=== PATIENT | female | born 1975 | race African-American/Black ===

== ENCOUNTER 2019-05-19 23:51 | Emergency (ER) | payer SELFPAY ==
[2019-05-20] MEDS ORDERED: ASPIRIN 325 MG TAB ONE ×2 (00:21→00:26)
[2019-05-20 01:59] LABS: Protime INR 1.07
[2019-05-20 02:00] LABS: Absolute Lymphocytes (CBC) 1.9 K/uL (0.7-4.9); Basophils % 1.4 % (0-1.3); Hematocrit 35.9 % (36.0-45.0); Lymphocytes % 23.2 % (15.3-44.8); MPV 10.9 fL (7.6-11.3); RBC Red Blood Cell Count 4.65 M/uL (3.86-4.86)
[2019-05-20 02:12] LABS: ALT/SGPT 21 U/L (12-78); AST/SGOT 13 U/L (15-37); Albumin 3.5 g/dL (3.4-5.0); Alkaline Phosphatase 108 U/L (45-117); BUN Blood Urea Nitrogen 15 mg/dL (7-18); Bicarbonate 28 mmol/L (21-32); Bilirubin Direct 0.1 mg/dL (0-0.2); Bilirubin Total 0.6 mg/dL (0.2-1.0); Glucose Level 165 mg/dL (74-106); Magnesium 2.2 mg/dL (1.8-2.4); NT PRO-BNP 128 pg/mL (<125); Potassium 4.2 mmol/L (3.5-5.1); Protein, Total 8.1 g/dL (6.4-8.2); Sodium Level 140 mmol/L (136-145); Troponin (Emerg Dept Use Only) < 0.02 ng/mL (0.0-0.045)
--- NOTE | 2019-05-20 03:03 | ER ---
Nurse's Notes [facility] Name: Alisa Landry Age: 43 yrs Sex: Female : 1975 Arrival Date: 05/19/2019 Time: 23:53 Bed 18 Private MD: Diagnosis: Essential (primary) hypertension Presentation: 05/20 00:10 Presenting complaint: Patient states: "I recently went to my doctor and he adjusted my jd3 blood pressure mediation. today my home monitor won't read my blood pressure and just says error. I also started to have intermittent burning in my chest, neck and arm and is the reason I decided to come to the ER.". Transition of care: patient was not received from another setting of care. Onset of symptoms was May 20, 2019. Risk Assessment: Do you want to hurt yourself or someone else? Patient reports no desire to harm self or others. Initial Sepsis Screen: Does the patient meet any 2 criteria? No. Patient's initial sepsis screen is negative. Does the patient have a suspected source of infection? No. Patient's initial sepsis screen is negative. Care prior to arrival: None. 00:10 Method Of Arrival: Ambulatory jd3 00:10 Acuity: ZEYAD 2 jd3 Triage Assessment: 00:18 Respiratory: Reports shortness of breath prior to arrival. Onset: The symptoms/episode jd3 began/occurred just prior to arrival, the patient reports symptoms have resolved. 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 - Social history:: Smoking status: Patient/guardian denies using tobacco. - Ebola Screening: : Patient negative for fever greater than or equal to 101.5 degrees Fahrenheit, and additional compatible Ebola Virus Disease symptoms. Screenin:18 Abuse screen: Denies threats or abuse. Nutritional screening: No deficits noted. jd3 Tuberculosis screening: No symptoms or risk factors identified. Fall Risk Ambulatory Aid- None/Bed Rest/Nurse Assist (0 pts). Gait- Normal/Bed Rest/Wheelchair (0 pts) Mental Status- Oriented to own ability (0 pts). Total Jackson Fall Scale indicates No Risk (0-24 pts). Assessment: 00:30 General: Appears uncomfortable, obese, Behavior is calm, cooperative. Pain: Complains tr5 of pain in xyphoid area and mid-sternal area Pain radiates to anterior aspect of left upper chest and left breast Quality of pain is described as burning, Pain began gradually. Neuro: Level of Consciousness is awake, alert, Oriented to person, place, time, situation, Solid State Tester are equal bilaterally Moves all extremities. Cardiovascular: Heart tones present Capillary refill < 3 seconds Pulses are all present. Edema is 3+ to left ankle, left foot, right ankle and right foot Rhythm is sinus rhythm Chest pain. Respiratory: Airway is patent Respiratory effort is even, unlabored. Respiratory: Breath sounds are clear bilaterally. GI: Reports gaseousness. : No signs and/or symptoms were reported regarding the genitourinary system. EENT: No signs and/or symptoms were reported regarding the EENT system. Derm: No signs and/or symptoms reported regarding the dermatologic system. Musculoskeletal: Capillary refill < 3 seconds, Range of motion: intact in all extremities. 01:30 Reassessment: Patient appears in no apparent distress at this time. Patient and/or tr5 family updated on plan of care and expected duration. Pain level reassessed. Patient is alert, oriented x 3, equal unlabored respirations, skin warm/dry/pink. 02:30 Reassessment: Patient and/or family updated on plan of care and expected duration. Pain tr5 level reassessed. Patient is alert, oriented x 3, equal unlabored respirations, skin warm/dry/pink. Patient denies pain at this time. 03:35 Reassessment: Patient appears in no apparent distress at this time. Patient and/or tr5 family updated on plan of care and expected duration. Pain level reassessed. Patient is alert, oriented x 3, equal unlabored respirations, skin warm/dry/pink. Vital Signs: 00:12 BP 189 / 85; Pulse 68; Resp 18 S; Temp 98.1(O); Pulse Ox 100% on R/A; Weight 176.9 kg jd3 (R); Height 4 ft. 11 in. (149.86 cm) (R); Pain 0/10; 01:30 BP 195 / 85; Pulse 70; Resp 16; Pulse Ox 100% ; tr5 03:03 BP 165 / 65; Pulse 62; Resp 16; Pulse Ox 100% on R/A; tr5 00:12 Body Mass Index 78.77 (176.90 kg, 149.86 cm) jd3 ED Course: 05/19 23:53 Patient arrived in ED. ds1 05/20 00:05 [facility] snw 00:05 Ramsey Horan MD is Attending Physician. snw 00:12 Triage completed. jd3 00:14 Arm band placed on Patient placed in an exam room. EKG completed in triage. Results jd3 shown to MD. 00:19 Patient has correct armband on for positive identification. Bed in low position. Call jd3 light in reach. Side rails up X 1. Adult w/ patient. 00:20 air sampling and monitoring on. Pulse ox on. NIBP on. Door closed. Noise minimized. tr5 00:27 Gerry Blair, RN is Primary Nurse. tr5 00:45 Missed attempt(s): 20 gauge in right antecubital area. tr5 00:46 X-ray completed. Portable x-ray completed in exam room. Patient tolerated procedure kw well. 00:52 Missed attempt(s): 22 gauge in right antecubital area. Bleeding controlled, band aid jd3 applied, catheter tip intact. 00:54 Chest Single View XRAY In Process Unspecified. EDMS 01:11 Awaiting radiology results. tr5 01:11 Inserted saline lock: 20 gauge in left antecubital area, using aseptic technique. tr5 ,using aseptic technique. By ultrasound. 01:15 Initial lab(s) drawn, by me, sent to lab. bb 03:36 No provider procedures requiring assistance completed. IV discontinued. tr5 Administered Medications: 00:25 CANCELLED (other intervention used): Aspirin Chewable Tablet 324 mg PO once; 81 mg snw tablets x 4 00:45 Drug: Aspirin Chewable Tablet 243 mg Route: PO; tr5 01:16 Follow up: Response: No adverse reaction tr5 Outcome: 03:02 Discharge ordered by MD. amaya 03:36 Discharged to home ambulatory. tr5 03:36 Condition: stable 03:36 Discharge instructions given to patient, Instructed on discharge instructions, follow up and referral plans. Demonstrated understanding of instructions, follow-up care. 03:38 Patient left the ED. tr5 Signatures: Dispatcher [employer] EDNE Dena Paz, IJEOMAC FABRICATION SPECIALIST-Briseida Magana ds1 Klyeigh Jo RN RN bb Cinthia Price Jonathon, RN RN Gerry Hernandez RN RN tr5
--- NOTE | 2019-05-20 03:04 | EDPHYS ---
Physician Documentation [facility] Name: Alisa Landry Age: 43 yrs Sex: Female : 1975 Arrival Date: 05/19/2019 Time: 23:53 Bed 18 Private MD: ED Physician Ramsey Horan HPI: 05/20 00:37 This 43 yrs old Black Female presents to ER via Ambulatory with complaints of High snw Blood Pressure, Shortness Of Breath. 00:37 The patient has elevated blood pressure and discovered this at home, with a home snw device. Onset: The symptoms/episode began/occurred saw Dr. Wilson last week, pt was on Bystolic and last week they added Losartan. Yesterday Losartan dose was increased. Today pt had a brief episode of near syncope and the brief shortness of breath. Noted her BP was high all day and decided to come to ED. Severity of symptoms: At its worst the blood pressure was 100 mm Hg. The patient has experienced similar episodes in the past. as noted. 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 - Social history:: Smoking status: Patient/guardian denies using tobacco. - Ebola Screening: : Patient negative for fever greater than or equal to 101.5 degrees Fahrenheit, and additional compatible Ebola Virus Disease symptoms. ROS: 00:36 Constitutional: Negative for fever, chills, and weight loss, Eyes: Negative for injury, snw pain, redness, and discharge, ENT: Negative for injury, pain, and discharge, Neck: Negative for injury, pain, and swelling, Cardiovascular: Negative for chest pain, palpitations, and edema, burning in chest and back Abdomen/GI: Negative for abdominal pain, nausea, vomiting, diarrhea, and constipation, Back: Negative for injury and pain, : Negative for injury, bleeding, discharge, and swelling, MS/Extremity: Negative for injury and deformity, Skin: Negative for injury, rash, and discoloration, Neuro: Negative for headache, weakness, numbness, tingling, and seizure. 00:36 Respiratory: Positive for shortness of breath, at rest. briefly. Exam: 00:35 Constitutional: This is a well developed, well nourished patient who is awake, alert, snw and in no acute distress. Head/Face: Normocephalic, atraumatic. Eyes: Pupils equal round and reactive to light, extra-ocular motions intact. Lids and lashes normal. Conjunctiva and sclera are non-icteric and not injected. Cornea within normal limits. Periorbital areas with no swelling, redness, or edema. ENT: Nares patent. No nasal discharge, no septal abnormalities noted. Tympanic membranes are normal and external auditory canals are clear. Oropharynx with no redness, swelling, or masses, exudates, or evidence of obstruction, uvula midline. Mucous membranes moist. Neck: Trachea midline, no thyromegaly or masses palpated, and no cervical lymphadenopathy. Supple, full range of motion without nuchal rigidity, or vertebral point tenderness. No Meningismus. Chest/axilla: Normal chest wall appearance and motion. Nontender with no deformity. No lesions are appreciated. Cardiovascular: Regular rate and rhythm with a normal S1 and S2. No gallops, murmurs, or rubs. Normal PMI, no JVD. No pulse deficits. Respiratory: Lungs have equal breath sounds bilaterally, clear to auscultation and percussion. No rales, rhonchi or wheezes noted. No increased work of breathing, no retractions or nasal flaring. Abdomen/GI: Soft, non-tender, with normal bowel sounds. No distension or tympany. No guarding or rebound. No evidence of tenderness throughout. Back: No spinal tenderness. No costovertebral tenderness. Full range of motion. Skin: Warm, dry with normal turgor. Normal color with no rashes, no lesions, and no evidence of cellulitis. MS/ Extremity: Pulses equal, no cyanosis. Neurovascular intact. Full, normal range of motion. Neuro: Awake and alert, GCS 15, oriented to person, place, time, and situation. Cranial nerves II-XII grossly intact. Motor strength 5/5 in all extremities. Sensory grossly intact. Cerebellar exam normal. Normal gait. 00:35 ECG was reviewed by the Attending Physician. Vital Signs: 00:12 BP 189 / 85; Pulse 68; Resp 18 S; Temp 98.1(O); Pulse Ox 100% on R/A; Weight 176.9 kg jd3 (R); Height 4 ft. 11 in. (149.86 cm) (R); Pain 0/10; 01:30 BP 195 / 85; Pulse 70; Resp 16; Pulse Ox 100% ; tr5 03:03 BP 165 / 65; Pulse 62; Resp 16; Pulse Ox 100% on R/A; tr5 00:12 Body Mass Index 78.77 (176.90 kg, 149.86 cm) jd3 MDM: 00:09 Patient medically screened. snw 03:08 Data interpreted: Pulse oximetry: on room air is 100 %. Interpretation: normal. snw Counseling: I had a detailed discussion with the patient and/or guardian regarding: the historical points, exam findings, and any diagnostic results supporting the discharge/admit diagnosis, the presence of at least one elevated blood pressure reading (>120/80) during this emergency department visit, lab results, radiology results, the need for outpatient follow up, to return to the emergency department if symptoms worsen or persist or if there are any questions or concerns that arise at home. Special discussion: I have referred the patient to see his PCP for further evaluation of high blood pressure. Based on the history and exam findings, there is no indication for further emergent testing or inpatient evaluation. I discussed with the patient/guardian the need to see the primary care provider for further evaluation of the symptoms. 03:09 Data reviewed: vital signs, nurses notes, lab test result(s), EKG, radiologic studies. snw 05/20 00:18 Order name: Basic Metabolic Panel; Complete Time: 02:58 snw 05/20 00:18 Order name: CBC with Diff; Complete Time: 02:07 snw 05/20 00:18 Order name: LFT's; Complete Time: 02:58 snw 05/20 00:18 Order name: Magnesium; Complete Time: 02:58 snw 05/20 00:18 Order name: NT PRO-BNP; Complete Time: 02:58 snw 05/20 00:18 Order name: PT-INR; Complete Time: 02:07 w 05/20 00:17 Order name: Chest Single View XRAY 05/20 00:18 Order name: Troponin (emerg Dept Use Only); Complete Time: 02:58 snw 05/20 00:18 Order name: EKG; Complete Time: 00:21 w 05/20 00:18 Order name: Cardiac monitoring; Complete Time: 00:20 snw 05/20 00:18 Order name: EKG - Nurse/Tech; Complete Time: 00:20 snw 05/20 00:18 Order name: IV Saline Lock; Complete Time: :15 w 05/20 00:18 Order name: Labs collected and sent; Complete Time: 01:15 05/20 00:18 Order name: O2 Per Protocol; Complete Time: 00:20 w 05/20 00:18 Order name: O2 Sat Monitoring; Complete Time: 00:20 snw 05/20 02:59 Order name: Recheck B/P; Complete Time: 03:05 snw Administered Medications: 00:25 CANCELLED (other intervention used): Aspirin Chewable Tablet 324 mg PO once; 81 mg snw tablets x 4 00:45 Drug: Aspirin Chewable Tablet 243 mg Route: PO; tr5 01:16 Follow up: Response: No adverse reaction tr5 Disposition: 05/20/19 03:02 Discharged to Home. Impression: Essential (primary) hypertension. - Condition is Stable. - Discharge Instructions: Hypertension, How to Take Your Blood Pressure, [id number], DASH Eating Plan, Rehydration, Adult, Managing Your Hypertension, Form - Blood Pressure Record Sheet. - Work release form, Medication Reconciliation Form, Thank You Letter, Antibiotic Education, Prescription Opioid Use form. - Follow up: Private Physician; When: 1 - 2 days; Reason: Recheck today's complaints, Continuance of care, Re-evaluation by your physician. Follow up: Emergency Department; When: As needed; Reason: Worsening of condition. - Problem is an acute exacerbation. - Symptoms are unchanged. Signatures: Dispatcher [facility] EDDena Pu[facility], TESTING AND REGULATING TECHNICIAN-C TESTING AND REGULATING TECHNICIAN-Csnw Faraz Moody, RN RN jd3 Gerry Blair RN RN tr5 Corrections: (The following items were deleted from the chart) 00:25 00:17 Aspirin Chewable Tablet 324 mg PO once; 81 mg tablets x 4 ordered. snw snw 00:25 00:24 Aspirin Chewable Tablet 324 mg PO once; 81 mg tablets x 4 ordered. snw snw 03:02 02:59 Chart complete. snw snw 03:38 03:02 05/20/2019 03:02 Discharged to Home. Impression: Essential (primary) tr5 hypertension. Condition is Stable. Forms are Medication Reconciliation Form, Thank You Letter, Antibiotic Education, Prescription Opioid Use. Follow up: Private Physician; When: 1 - 2 days; Reason: Recheck today's complaints, Continuance of care, Re-evaluation by your physician. Follow up: Emergency Department; When: As needed; Reason: Worsening of condition. Problem is an acute exacerbation. Symptoms are unchanged. snw
--- NOTE | 2019-05-20 08:19 | RAD REPORT ---
EXAM DESCRIPTION: RAD - Chest Single View - 05/20/2019 12:47 am CLINICAL HISTORY: CONGESTION Chest pain. COMPARISON: No comparisons FINDINGS: Portable technique limits examination quality. Mild interstitial pulmonary edema. The heart is mildly enlarged in size. No displaced fractures.
--- NOTE | 2019-05-20 09:48 | EKG ---
Test Date: 2019-05-20 Test Time: 00:14:40 Single Resource Boss: JEANCARLOS MEASUREMENT RESULTS: Intervals: Rate: 66 [place]: 196 QRSD: 86 QT: 416 QTc: 436 Divide: P: 74 [place]: 196 QRS: 71 T: 9 INTERPRETIVE STATEMENTS: Normal sinus rhythm Normal ECG No previous ECG available for comparison Electronically Signed On 05-20-19 09:47:15 CDT by Cb Renee
== END 2019-05-20 03:38 | disposition home or self-care (01) ==
LOC: ER 23:51
DX: I10 Essential (primary) hypertension (principal); E11.9 Type 2 diabetes mellitus without complications; Z79.4 Long term (current) use of insulin; Z79.82 Long term (current) use of aspirin
CPT/HCPCS: 36415; 71045; 80048; 80076; 83735; 83880; 84484; 85025; 85610; 93005

== ENCOUNTER 2019-07-04 14:52 | Emergency (ER) | payer SELFPAY ==
[2019-07-04 15:46] LABS: Absolute Lymphocytes (CBC) 2.4 K/uL (0.7-4.9); Basophils % 1.2 % (0-1.3); Hematocrit 40.5 % (36.0-45.0); Lymphocytes % 32.1 % (15.3-44.8); MPV 10.3 fL (7.6-11.3); RBC Red Blood Cell Count 5.16 M/uL (3.86-4.86)
[2019-07-04] MEDS ORDERED: NA CHLORIDE 0.9% 1,000 ML ONE ×2 (15:46→16:52)
[2019-07-04 15:49] LABS: Protime INR 1.07
[2019-07-04 16:03] LABS: ALT/SGPT 35 U/L (12-78); AST/SGOT 25 U/L (15-37); Albumin 3.8 g/dL (3.4-5.0); Alkaline Phosphatase 108 U/L (45-117); BUN Blood Urea Nitrogen 27 mg/dL (7-18); Bicarbonate 26 mmol/L (21-32); Bilirubin Direct 0.2 mg/dL (0-0.2); Bilirubin Total 0.7 mg/dL (0.2-1.0); Glucose Level 150 mg/dL (74-106); Lipase 121 U/L (73-393); Magnesium 2.4 mg/dL (1.8-2.4); NT PRO-BNP 37 pg/mL (<125); Potassium 3.8 mmol/L (3.5-5.1); Protein, Total 8.4 g/dL (6.4-8.2); Sodium Level 139 mmol/L (136-145); Troponin (Emerg Dept Use Only) < 0.02 ng/mL (0.0-0.045)
--- NOTE | 2019-07-04 17:47 | RAD REPORT ---
EXAM DESCRIPTION: Jono Single View07/04/2019 4:22 pm CLINICAL HISTORY: Chest pain COMPARISON: May 2018 FINDINGS: The lungs appear clear of acute infiltrate. The heart is mildly to moderately enlarged IMPRESSION: No acute abnormalities displayed
--- NOTE | 2019-07-04 18:17 | EDPHYS ---
Physician Documentation [facility] Name: Alisa Landry Age: 43 yrs Sex: Female : 1975 Arrival Date: 07/04/2019 Time: 14:55 Bed 16 Private MD: ED Physician Randy Michel HPI: 07/04 15:41 This 43 yrs old Black Female presents to ER via Ambulatory with complaints of General jmm Weakness. 15:41 The patient presents to the emergency department with vomiting, diarrhea. Onset: The jmm symptoms/episode began/occurred gradually, 4 day(s) ago. Possible causes: unknown. The symptoms are aggravated by nothing. The symptoms are alleviated by nothing. Associated signs and symptoms: Pertinent positives:. This is a 43 year old female with a history of dm, htn that presents to the ED with complaints of generalized fatigue, upper extremity weakness beginning 4 days ago. Patient states this past Saturday states she developed vomiting and diarrhea. Patient states vomiting and diarrhea has resolved but continues to have generalized fatigue. Patient states her arms feel heavy. Denies chest pain. . Denies abdominal pain. 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 - Social history:: Smoking status: Patient/guardian denies using tobacco. - Ebola Screening: : No symptoms or risks identified at this time. ROS: 15:41 Cardiovascular: Negative for chest pain, palpitations, and edema, Respiratory: Negative jmm for shortness of breath, cough, wheezing, and pleuritic chest pain. 15:41 Skin: Negative for injury, rash, and discoloration. 15:41 Constitutional: Positive for malaise. 15:41 Abdomen/GI: Positive for vomiting, diarrhea. 15:41 MS/extremity: Positive for 15:41 Neuro: Positive for weakness. 15:41 All other systems are negative. Exam: 15:41 Constitutional: This is a well developed, well nourished patient who is awake, alert, jmm and in no acute distress. Head/Face: atraumatic. Eyes: EOMI, no conjunctival erythema appreciated ENT: Moist Mucus Membranes Neck: Trachea midline, Supple Chest/axilla: Normal chest wall appearance and motion. Cardiovascular: Regular rate and rhythm. No edema appreciated Respiratory: Normal respirations, no respiratory distress appreciated Abdomen/GI: Non distended, soft Back: Normal ROM Skin: General appearance color normal MS/ Extremity: Moves all extremities, no obvious deformities appreciated, no edema noted to the lower extremities Neuro: Awake and alert, normal gait Psych: Behavior is normal, Mood is normal, Patient is cooperative and pleasant 15:49 ECG was reviewed by the Attending Physician. [facility] Vital Signs: 15:03 BP 113 / 85; Pulse 64; Resp 18 S; Temp 98.6(O); Pulse Ox 98% on R/A; Weight 178.72 kg aa5 (R); Height 4 ft. 11 in. (149.86 cm) (R); Pain 0/10; 16:00 BP 127 / 74; Pulse 66; Resp 18; Temp 98.5(O); Pulse Ox 98% on R/A; mh5 16:49 BP 109 / 73; Pulse 65; Resp 18; Temp 98.1(O); Pulse Ox 98% on R/A; mh5 17:43 BP 121 / 76; Pulse 66; Resp 17; Pulse Ox 100% on R/A; tw2 15:03 Body Mass Index 79.58 (178.72 kg, 149.86 cm) aa5 MDM: 15:08 Patient medically screened. mary 16:44 Data reviewed: vital signs, nurses notes. Counseling: I had a detailed discussion with carmen the patient and/or guardian regarding: the historical points, exam findings, and any diagnostic results supporting the discharge/admit diagnosis, lab results, the need for outpatient follow up, to return to the emergency department if symptoms worsen or persist or if there are any questions or concerns that arise at home. ED course: Patient is alert and non toxic in appearance in the ED. Cardiac enzymes negative. Labs concerning for dehydration. Patient's CRp and ESR are elevated, this may be due to an underlying autoimmune condition causing the patients shoulder and neck discomft. Will initiate low dose steroids and I have advised the patient to closely monitory Bgl at home with close follow up with pcp. patient otherwise given strict return precautions. patient understood and agrees with the plan of care. . 17:25 Data reviewed: lab test result(s), EKG, radiologic studies. [facility] 07/04 15:30 Order name: Basic Metabolic Panel; Complete Time: 16:18 [facility] 07/04 15:30 Order name: CBC with Diff; Complete Time: 16:18 [facility] 07/04 15:30 Order name: LFT's; Complete Time: 16:18 [facility] 07/04 15:30 Order name: Magnesium; Complete Time: 16:18 [facility] 07/04 15:30 Order name: NT PRO-BNP; Complete Time: 16:18 [facility] 07/04 15:30 Order name: PT-INR; Complete Time: 16:18 [facility] 07/04 15:30 Order name: Troponin (emerg Dept Use Only); Complete Time: 16:18 [facility] 07/04 15:30 Order name: XRAY Chest (1 view); Complete Time: 17:52 [facility] 07/04 15:30 Order name: Lipase; Complete Time: 16:18 [facility] 07/04 15:41 Order name: ESR; Complete Time: 16:42 [facility] 07/04 15:44 Order name: C-Reactive Protein; Complete Time: 16:18 [facility] 07/04 15:30 Order name: EKG; Complete Time: 15:32 [facility] 07/04 15:30 Order name: Cardiac monitoring; Complete Time: 15:30 [facility] 07/04 15:30 Order name: EKG - Nurse/Tech; Complete Time: 15:41 [facility] 07/04 15:30 Order name: IV Saline Lock; Complete Time: 15:40 [facility] 07/04 15:30 Order name: Labs collected and sent; Complete Time: 15:40 [facility] 07/04 15:30 Order name: O2 Per Protocol; Complete Time: 15:30 [facility] 07/04 15:30 Order name: O2 Sat Monitoring; Complete Time: 15:31 [facility] EC:49 Rate is 61 beats/min. Rhythm is regular. QRS Lander is Normal. SC interval is normal. QRS [facility] interval is normal. QT interval is normal. T waves are Inverted in leads III, V2, V3. T waves are Flattened in leads aVF, V5, V6. No ST changes noted. Reviewed by me. Administered Medications: 15:49 Drug: NS 0.9% 1000 ml Route: IV; Rate: 1 bolus; Site: right antecubital; tw2 16:53 Follow up: Response: No adverse reaction; IV Status: Completed infusion; IV Intake: tw2 1000ml 16:53 Drug: NS 0.9% 1000 ml Route: IV; Rate: 1 bolus; Site: right antecubital; tw2 18:25 Follow up: Response: No adverse reaction; IV Status: Completed infusion; IV Intake: tw2 1000ml Disposition: 07/04/19 18:16 Discharged to Home. Impression: Vomiting, Diarrhea, unspecified, Dehydration. - Condition is Stable. - Discharge Instructions: Dehydration, Adult, Diarrhea, Adult, Nausea and Vomiting, Adult, Rehydration, Adult, Polymyalgia Rheumatica. - Prescriptions for Prednisone 20 mg Oral Tablet - take 1 tablet by ORAL route once daily for 5 days; 5 tablet. - Medication Reconciliation Form, Thank You Letter, Antibiotic Education, Prescription Opioid Use form. - Follow up: Private Physician; When: 2 - 3 days; Reason: Recheck today's complaints, Continuance of care, Re-evaluation by your physician. Addendum: 07/06/2019 08:38 Co-signature as Attending Physician, Randy Michel MD I agree with the assessment and c corcoran plan of care. Signatures: Dispatcher [employer] [facility] Randy Michel MD MD cha Mickail, Joel, PA PA Salena Menjivar, RN RN aa5 Caitlin Pope RN RN tw2 Corrections: (The following items were deleted from the chart) 07/04 15:44 15:41 C-REACTIVE PROTEIN+C.LAB.BRZ ordered. [facility] 18:26 18:16 07/04/2019 18:16 Discharged to Home. Impression: Vomiting; Diarrhea, unspecified; tw2 Dehydration. Condition is Stable. Forms are Medication Reconciliation Form, Thank You Letter, Antibiotic Education, Prescription Opioid Use. Follow up: Private Physician; When: 2 - 3 days; Reason: Recheck today's complaints, Continuance of care, Re-evaluation by your physician. leander
--- NOTE | 2019-07-04 18:17 | ER ---
Nurse's Notes [facility] Name: Alisa Landry Age: 43 yrs Sex: Female : 1975 Arrival Date: 07/04/2019 Time: 14:55 Bed 16 Private MD: Diagnosis: Vomiting;Diarrhea, unspecified;Dehydration Presentation: 07/04 14:58 Presenting complaint: Patient states: Nausea/vomiting/diarrhea all day Saturday and aa5 resolved Saturday night. Pt reports generalized weakness since . Pt states "I just feel so tired". Transition of care: patient was not received from another setting of care. Onset of symptoms was June 2019. Risk Assessment: Do you want to hurt yourself or someone else? Patient reports no desire to harm self or others. Initial Sepsis Screen: Does the patient meet any 2 criteria? No. Patient's initial sepsis screen is negative. Does the patient have a suspected source of infection? No. Patient's initial sepsis screen is negative. Care prior to arrival: None. 14:58 Acuity: ZEYAD 3 aa5 14:58 Method Of Arrival: Ambulatory aa5 Triage Assessment: 15:06 Respiratory: Onset: The symptoms/episode began/occurred 2-3 days, the patient has mild tw2 shortness of breath. 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 - Social history:: Smoking status: Patient/guardian denies using tobacco. - Ebola Screening: : No symptoms or risks identified at this time. Screenin:04 Abuse screen: Denies threats or abuse. Nutritional screening: No deficits noted. tw2 Tuberculosis screening: No symptoms or risk factors identified. Fall Risk Secondary diagnosis (15 points) impaired mobility. Assessment: 15:05 Cardiovascular: Rhythm is regular. tw2 15:05 Pain: Denies pain. Respiratory: Airway is patent Respiratory effort is even, unlabored, tw2 Breath sounds are clear bilaterally. GI: Reports diarrhea, nausea, vomiting. 15:06 General: Appears in no apparent distress. obese, Behavior is calm, cooperative, tw2 appropriate for age. Neuro: Level of Consciousness is awake, alert, obeys commands, Oriented to person, place, time, situation. Neuro: Reports weakness since 2-3 days ago. Cardiovascular: Heart tones S1 S2 Patient's skin is warm and dry. Respiratory: Airway is patent Respiratory effort is even, unlabored, Respiratory pattern is regular, symmetrical, Breath sounds are clear bilaterally. GI: Abdomen is round obese, Bowel sounds present X 4 quads. Reports diarrhea, nausea, vomiting. : No signs and/or symptoms were reported regarding the genitourinary system. EENT: No signs and/or symptoms were reported regarding the EENT system. Derm: No signs and/or symptoms reported regarding the dermatologic system. Musculoskeletal: Range of motion: intact in all extremities. 16:00 Reassessment: Patient appears in no apparent distress at this time. No changes from tw2 previously documented assessment. Patient and/or family updated on plan of care and expected duration. Pain level reassessed. Patient is alert, oriented x 3, equal unlabored respirations, skin warm/dry/pink. 17:42 Reassessment: Patient appears in no apparent distress at this time. No changes from tw2 previously documented assessment. Patient and/or family updated on plan of care and expected duration. Pain level reassessed. Patient is alert, oriented x 3, equal unlabored respirations, skin warm/dry/pink. 18:25 Reassessment: Patient appears in no apparent distress at this time. No changes from tw2 previously documented assessment. Vital Signs: 15:03 BP 113 / 85; Pulse 64; Resp 18 S; Temp 98.6(O); Pulse Ox 98% on R/A; Weight 178.72 kg aa5 (R); Height 4 ft. 11 in. (149.86 cm) (R); Pain 0/10; 16:00 BP 127 / 74; Pulse 66; Resp 18; Temp 98.5(O); Pulse Ox 98% on R/A; mh5 16:49 BP 109 / 73; Pulse 65; Resp 18; Temp 98.1(O); Pulse Ox 98% on R/A; mh5 17:43 BP 121 / 76; Pulse 66; Resp 17; Pulse Ox 100% on R/A; tw2 15:03 Body Mass Index 79.58 (178.72 kg, 149.86 cm) aa5 ED Course: 14:55 Patient arrived in ED. mr 14:58 Arm band placed on. aa5 15:01 Triage completed. aa5 15:04 Caitlin Pope, TONA is Primary Nurse. tw2 15:04 Prince Stover PA is PHCP. [facility] 15:04 Randy Michel MD is Attending Physician. [facility] 15:05 it specialist on. Pulse ox on. NIBP on. tw2 15:06 Bed in low position. Call light in reach. tw2 15:41 Inserted saline lock: 22 gauge in right antecubital area, using aseptic technique. tw2 Blood collected. 15:46 EKG done, by ED staff, reviewed by Prince PERALES. 5 16:22 XRAY Chest (1 view) In Process Unspecified. EDMS 18:25 No provider procedures requiring assistance completed. IV discontinued, intact, tw2 bleeding controlled, No redness/swelling at site. Pressure dressing applied. Administered Medications: 15:49 Drug: NS 0.9% 1000 ml Route: IV; Rate: 1 bolus; Site: right antecubital; tw2 16:53 Follow up: Response: No adverse reaction; IV Status: Completed infusion; IV Intake: tw2 1000ml 16:53 Drug: NS 0.9% 1000 ml Route: IV; Rate: 1 bolus; Site: right antecubital; tw2 18:25 Follow up: Response: No adverse reaction; IV Status: Completed infusion; IV Intake: tw2 1000ml Intake: 16:53 IV: 1000ml; Total: 1000ml. tw2 18:25 IV: 1000ml; Total: 2000ml. tw2 Outcome: 18:16 Discharge ordered by . [facility] 18:25 Discharged to home ambulatory. tw2 18:25 Condition: stable 18:25 Discharge instructions given to patient, Instructed on discharge instructions, follow up and referral plans. medication usage, Demonstrated understanding of instructions, follow-up care, medications, Prescriptions given X 1. 18:26 Patient left the ED. tw2 Signatures: Dispatcher [employer] EDMS Prince Stover PA PA jmm Rivera, Mary mr Anaya, Salena, RN RN aa5 Caitlin Pope RN RN tw2 Jenny Tuttle [facility] Corrections: (The following items were deleted from the chart) 16:58 16:49 Pulse 65bpm; Resp 18bpm; Pulse Ox 98% RA; Temp 98.1F Oral; mh5 mh5
[2019-07-04 18:34] VITALS: TEMP 98.1
[2019-07-04 18:35] VITALS: BP 121/76; O2SAT 100
--- NOTE | 2019-07-05 09:05 | EKG ---
Test Date: 2019-07-04 Test Time: 15:38:56 Pool Player: WINTER MEASUREMENT RESULTS: Intervals: Rate: 61 MA: 190 QRSD: 98 QT: 426 QTc: 428 [place]: P: 31 MA: 190 QRS: 44 T: -13 INTERPRETIVE STATEMENTS: Normal sinus rhythm T wave abnormality, consider anterior ischemia Abnormal ECG Compared to ECG 05/20/2019 00:14:40 T-wave abnormality now present Possible ischemia now present Electronically Signed On 07-05-19 09:04:08 CDT by Cb Renee
== END 2019-07-04 18:26 | disposition home or self-care (01) ==
LOC: ER 14:52
DX: E86.0 Dehydration (principal); R11.10 Vomiting, unspecified; R19.7 Diarrhea, unspecified; I10 Essential (primary) hypertension; E11.9 Type 2 diabetes mellitus without complications
CPT/HCPCS: 36415; 71045; 80048; 80076; 83690; 83735; 83880; 84484; 85025; 85610; 85652; 86140; 93005; 96360; 96361; 99285; J7030

== ENCOUNTER 2019-09-17 19:30 | Emergency (ER) | payer OTHER, SELFPAY ==
--- OUTSIDE RECORDS SUMMARY | 2019-09-17 19:32 | XMS REPORT ---
:1975 Author Organization [facility] Address [address] [place] [address] Dr. Cabral [address] [place] [id number] Care Team Providers Name Role Phone Unavailable Unavailable Unavailable Problems This patient has no known problems. Allergies, Adverse Reactions, Alerts This patient has no known allergies or adverse reactions. Medications This patient has no known medications.
[2019-09-17 21:32] LABS: Absolute Lymphocytes (CBC) 2.2 K/uL (0.7-4.9); Basophils % 0.6 % (0-1.3); Hematocrit 34.7 % (36.0-45.0); Lymphocytes % 22.7 % (15.3-44.8); MPV 10.3 fL (7.6-11.3)
[2019-09-17 21:33] LABS: Protime INR 1.11
[2019-09-17 21:55] LABS: ALT/SGPT 22 U/L (12-78); AST/SGOT 12 U/L (15-37); Albumin 3.8 g/dL (3.4-5.0); Alkaline Phosphatase 104 U/L (45-117); BUN Blood Urea Nitrogen 25 mg/dL (7-18); Bicarbonate 26 mmol/L (21-32); Bilirubin Direct 0.1 mg/dL (0-0.2); Bilirubin Total 0.5 mg/dL (0.2-1.0); Glucose Level 152 mg/dL (74-106); Magnesium 2.5 mg/dL (1.8-2.4); NT PRO-BNP 77 pg/mL (<125); Potassium 3.6 mmol/L (3.5-5.1); Protein, Total 8.5 g/dL (6.4-8.2); Sodium Level 136 mmol/L (136-145); Troponin (Emerg Dept Use Only) < 0.02 ng/mL (0.0-0.045)
--- NOTE | 2019-09-17 22:11 | RAD REPORT ---
EXAM DESCRIPTION: Jono Single View09/17/2019 8:53 pm CLINICAL HISTORY: Chest pain COMPARISON: June 2019 FINDINGS: The lungs appear clear of acute infiltrate. The heart is mildly enlarged IMPRESSION: No acute abnormalities displayed
--- NOTE | 2019-09-17 22:27 | ER ---
Nurse's Notes [facility] Name: Alisa Landry Age: 43 yrs Sex: Female : 1975 Arrival Date: 09/17/2019 Time: 19:33 Bed 7 Private MD: Diagnosis: Shortness of breath Presentation: 09/17 19:35 Presenting complaint: Patient states: "At about 4:30 I started feeling really tired, aj1 and then I went home and then I was just sitting there and I couldn't get my breath, like it felt like I was trying to make myself take a breath, and it feels like something was pressing in this area (points to epigastric area) I think the last time I was here it was the same issue, they said I might have some autoimmune disease, but my doctor ruled that out". Transition of care: patient was not received from another setting of care. Onset of symptoms was September 17, 2019. Risk Assessment: Do you want to hurt yourself or someone else? Patient reports no desire to harm self or others. Initial Sepsis Screen: Does the patient meet any 2 criteria? No. Patient's initial sepsis screen is negative. Does the patient have a suspected source of infection? No. Patient's initial sepsis screen is negative. Care prior to arrival: None. 19:35 Method Of Arrival: Ambulatory aj1 19:35 Acuity: ZEYAD 3 aj1 Triage Assessment: 19:41 General: Appears in no apparent distress. uncomfortable, Behavior is calm, cooperative, aj1 appropriate for age. Pain: Denies pain. Neuro: Level of Consciousness is awake, alert, obeys commands, Oriented to person, place, time, situation. Cardiovascular: Patient's skin is warm and dry. Cardiovascular: Denies chest pain. Respiratory: Reports shortness of breath Airway is patent Respiratory effort is even, unlabored, Respiratory pattern is regular, symmetrical, Onset: The symptoms/episode began/occurred today, the patient has mild shortness of breath. 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 - Social history:: Smoking status: Patient/guardian denies using tobacco. - Ebola Screening: : Patient denies travel to an Ebola-affected area in the 21 days before illness onset. Screenin:17 Abuse screen: Denies threats or abuse. Nutritional screening: No deficits noted. jd3 Tuberculosis screening: No symptoms or risk factors identified. Fall Risk Ambulatory Aid- None/Bed Rest/Nurse Assist (0 pts). Gait- Normal/Bed Rest/Wheelchair (0 pts) Mental Status- Oriented to own ability (0 pts). Total Jackson Fall Scale indicates No Risk (0-24 pts). Assessment: 20:08 General: Appears in no apparent distress. uncomfortable, Behavior is calm, cooperative, jd3 appropriate for age. Pain: Denies pain. Neuro: Level of Consciousness is awake, alert, obeys commands, Oriented to person, place, time, situation, Reports dizziness, weakness. Cardiovascular: Heart tones S1 S2 present Capillary refill < 3 seconds Patient's skin is warm and dry. Respiratory: Reports shortness of breath prior to arrival Airway is patent Respiratory effort is even, unlabored, Respiratory pattern is regular, symmetrical, Breath sounds are clear bilaterally. the patient reports symptoms have resolved. GI: No signs and/or symptoms were reported involving the gastrointestinal system. Patient currently denies nausea, vomiting. : No signs and/or symptoms were reported regarding the genitourinary system. EENT: No signs and/or symptoms were reported regarding the EENT system. Derm: Skin is intact, Skin is dry, Skin is normal, Skin temperature is warm. Musculoskeletal: Circulation, motion, and sensation intact. Range of motion: intact in all extremities. 21:19 Reassessment: Patient appears in no apparent distress at this time. No changes from jd3 previously documented assessment. Patient and/or family updated on plan of care and expected duration. Pain level reassessed. Patient is alert, oriented x 3, equal unlabored respirations, skin warm/dry/pink. 22:21 Reassessment: Patient appears in no apparent distress at this time. No changes from jd3 previously documented assessment. Patient and/or family updated on plan of care and expected duration. Pain level reassessed. Patient is alert, oriented x 3, equal unlabored respirations, skin warm/dry/pink. 22:30 Reassessment: Patient appears in no apparent distress at this time. Patient and/or jd3 family updated on plan of care and expected duration. Pain level reassessed. Patient is alert, oriented x 3, equal unlabored respirations, skin warm/dry/pink. pt reported understanding of discharge instructions. even and steady gait upon discharge. Vital Signs: 19:41 BP 164 / 89; Pulse 69; Resp 18; Temp 97.7; Pulse Ox 100% on R/A; Weight 164.65 kg (R); aj1 Height 4 ft. 11 in. (149.86 cm) (R); Pain 0/10; 21:20 BP 99 / 85; Pulse 65; Resp 17 S; Pulse Ox 100% on R/A; jd3 22:22 BP 129 / 63; Pulse 65; Resp 17 S; Pulse Ox 100% on R/A; jd3 19:41 Body Mass Index 73.32 (164.65 kg, 149.86 cm) aj1 ED Course: 19:33 Patient arrived in ED. cl3 19:37 Triage completed. aj1 19:41 Arm band placed on Patient placed in waiting room. EKG completed in triage. Results aj1 shown to MD. 20:01 Vin García FNP-C is PHCP. la1 20:01 Mal Kendall MD is Attending Physician. la1 20:08 Faraz Moody, TONA is Primary Nurse. jd3 20:17 Patient has correct armband on for positive identification. Placed in gown. Bed in low jd3 position. Call light in reach. Side rails up X 1. Adult w/ patient. 20:18 Warm blanket given. jd3 20:56 XRAY Chest (1 view) In Process Unspecified. EDMS 21:25 Inserted saline lock: 22 gauge in right hand, using aseptic technique. Blood collected. rr5 22:29 No provider procedures requiring assistance completed. IV discontinued, intact, jd3 bleeding controlled, No redness/swelling at site. Pressure dressing applied. Administered Medications: No medications were administered Outcome: 22:25 Discharge ordered by MD. la1 22:30 Discharged to home ambulatory, with family. jd3 22:30 Condition: stable 22:30 Discharge instructions given to patient, family, Instructed on discharge instructions, follow up and referral plans. Demonstrated understanding of instructions, follow-up care. 22:32 Patient left the ED. jd3 Signatures: Dispatcher [employer] EDMS Kacy Dean RN RN aj1 Vin García, INSEMINATION WORKER-C INSEMINATION WORKER-Cla1 Faraz Moody RN RN jd3 Clarke Kalpan RN RN rr5 Suleman Martinez cl3
--- NOTE | 2019-09-17 22:28 | EDPHYS ---
Physician Documentation [facility] Name: Alisa Landry Age: 43 yrs Sex: Female : 1975 Arrival Date: 09/17/2019 Time: 19:33 Bed 7 Private MD: ED Physician Mal Kendall HPI: 09/17 20:35 This 43 yrs old Black Female presents to ER via Ambulatory with complaints of Shortness la1 Of Breath, General Weakness. 20:35 The patient has shortness of breath at rest. Onset: The symptoms/episode began/occurred la1 6 hour(s) ago. Duration: The symptoms are continuous. The patient's shortness of breath is aggravated by nothing, is alleviated by nothing. Associated signs and symptoms: Pertinent negatives: diaphoresis, dizziness, fever, hemoptysis, loss of consciousness, nausea, visual changes, vomiting. Severity of symptoms: At their worst the symptoms were mild. The patient has experienced similar episodes in the past. pt reports since 1630 today she feels like its hard for her to take a deep breath and she has to consciously think about taking a deep breath. Reports multiple episodes similar in the past. Is being worked up by PCP for similar symptoms, found out she was hypothyroid and was placed on a med recently. . 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 - Hysterectomy aj1 Historical: - Allergies: 19:41 No Known Allergies; aj1 - Home Meds: 19:41 magnesium oxide 400 mg Oral tab 500 mg daily [Active]; Vitamin D3 oral oral [Active]; aj1 tumeric 1000 mg daily [Active]; methyl folate 1000 mcg daily [Active]; thyroid medical historian 25 mcg daily [Active]; losartan 50 mg Oral tab 1 tab 2 times per day [Active]; Bystolic 20 mg oral tab [Active]; triamterene-hydrochlorothiazid 37.5-25 mg Oral cap once daily [Active]; aspirin 81 mg Oral chew once daily [Active]; - PMHx: 19:41 Diabetes - IDDM; Hypertension; Hypothyroidism; aj1 - PSHx: 19:41 Hysterectomy; aj1 - Immunization history:: Flu vaccine is not up to date. - Social history:: Smoking status: Patient/guardian denies using tobacco. - Ebola Screening: : Patient denies travel to an Ebola-affected area in the 21 days before illness onset. ROS: 20:37 Constitutional: Negative for fever, chills, and weight loss, Eyes: Negative for injury, la1 pain, redness, and discharge, ENT: Negative for injury, pain, and discharge, Neck: Negative for injury, pain, and swelling, Cardiovascular: Negative for chest pain, palpitations, and edema, Respiratory: + for SOB Abdomen/GI: Negative for abdominal pain, nausea, vomiting, diarrhea, and constipation, Back: Negative for injury and pain, MS/Extremity: Negative for injury and deformity, Neuro: Negative for headache, weakness, numbness, tingling, and seizure. Exam: 20:38 Constitutional: This is a well developed, well nourished patient who is awake, alert, la1 and in no acute distress. Head/Face: Normocephalic, atraumatic. Eyes: Pupils equal round and reactive to light, extra-ocular motions intact. Periorbital areas with no swelling, redness, or edema. ENT: Mucous membranes moist. Neck: No Meningismus. Chest/axilla: Normal chest wall appearance and motion. Nontender with no deformity. No lesions are appreciated. Cardiovascular: Regular rate and rhythm with a normal S1 and S2. No gallops, murmurs, or rubs. Normal PMI, no JVD. No pulse deficits. Respiratory: Lungs have equal breath sounds bilaterally, clear to auscultation No rales, rhonchi or wheezes noted. No increased work of breathing, no retractions or nasal flaring. Abdomen/GI: Soft, non-tender, with normal bowel sounds. No distension or tympany. No guarding or rebound. No evidence of tenderness throughout. Obese Back: No spinal tenderness. No costovertebral tenderness. Full range of motion. MS/ Extremity: Pulses equal, no cyanosis. Neurovascular intact. Full, normal range of motion. Neuro: Awake and alert, GCS 15, oriented to person, place, time, and situation. Normal gait. Vital Signs: 19:41 BP 164 / 89; Pulse 69; Resp 18; Temp 97.7; Pulse Ox 100% on R/A; Weight 164.65 kg (R); aj1 Height 4 ft. 11 in. (149.86 cm) (R); Pain 0/10; 21:20 BP 99 / 85; Pulse 65; Resp 17 S; Pulse Ox 100% on R/A; jd3 22:22 BP 129 / 63; Pulse 65; Resp 17 S; Pulse Ox 100% on R/A; jd3 19:41 Body Mass Index 73.32 (164.65 kg, 149.86 cm) aj1 MDM: 20:02 Patient medically screened. la1 22:23 Data reviewed: vital signs, nurses notes, lab test result(s), EKG, radiologic studies, la1 I have discussed the patient's presentation/case with the attending Emergency Department Physician; and as a result, I will discharge patient. Data interpreted: Pulse oximetry: on room air is 100 %. Interpretation: normal. Test interpretation: by ED physician or midlevel provider: ECG, plain radiologic studies. Counseling: I had a detailed discussion with the patient and/or guardian regarding: the historical points, exam findings, and any diagnostic results supporting the discharge/admit diagnosis, the presence of at least one elevated blood pressure reading (>120/80) during this emergency department visit, radiology results, the need for outpatient follow up, a family practitioner, to return to the emergency department if symptoms worsen or persist or if there are any questions or concerns that arise at home. ED course: Pt chest pain free at this time, not tachycardic, no hypoxia, no risk factors for PE, normal CXR. 09/17 20:32 Order name: Basic Metabolic Panel; Complete Time: 22:00 09/17 20:32 Order name: CBC with Diff; Complete Time: 22:00 09/17 20:32 Order name: LFT's; Complete Time: 22:00 09/17 20:32 Order name: Magnesium; Complete Time: 22:00 09/17 20:32 Order name: NT PRO-BNP; Complete Time: 22:00 09/17 20:32 Order name: PT-INR; Complete Time: 22:00 09/17 20:32 Order name: Troponin (emerg Dept Use Only); Complete Time: 22:00 09/17 20:32 Order name: XRAY Chest (1 view); Complete Time: 22:23 09/17 20:33 Order name: EKG; Complete Time: 20:09/17 20:33 Order name: Cardiac monitoring; Complete Time: 20:33 1 09/17 20:33 Order name: EKG - Nurse/Tech; Complete Time: 20:37 la1 09/17 20:33 Order name: IV Saline Lock; Complete Time: 21:32 la1 09/17 20:33 Order name: TSH; Complete Time: 22:00 la1 09/17 20:33 Order name: T4 Free; Complete Time: 22:00 la1 09/17 20:33 Order name: Labs collected and sent; Complete Time: 21:32 la1 09/17 20:33 Order name: O2 Per Protocol; Complete Time: 20:33 la1 09/17 20:33 Order name: O2 Sat Monitoring; Complete Time: 20:33 la1 Administered Medications: No medications were administered Disposition: 09/18 04:51 Co-signature as Attending Physician, Mal Kendall MD I agree with the assessment and tw4 plan of care. Disposition: 09/17/19 22:25 Discharged to Home. Impression: Shortness of breath. - Condition is Stable. - Discharge Instructions: Shortness of Breath, Fatigue. - Medication Reconciliation Form, Thank You Letter form. - Follow up: Private Physician; When: 2 - 3 days; Reason: Recheck today's complaints, Re-evaluation by your physician. - Problem is an ongoing problem. - Symptoms are unchanged. Signatures: Dispatcher [employer] EDKacy Buckley, RN RN aj1 Vin García, SLUBBER HAND-C SLUBBER HAND-Cla1 Faraz Moody RN RN jd3 Mal Kendall MD MD tw4 Corrections: (The following items were deleted from the chart) 09/17 22:32 22:25 09/17/2019 22:25 Discharged to Home. Impression: Shortness of breath. Condition jd3 is Stable. Forms are Medication Reconciliation Form, Thank You Letter, Antibiotic Education, Prescription Opioid Use. Follow up: Private Physician; When: 2 - 3 days; Reason: Recheck today's complaints, Re-evaluation by your physician. Problem is an ongoing problem. Symptoms are unchanged. la1
[2019-09-17 23:31] VITALS: O2SAT 100
[2019-09-17 23:33] VITALS: TEMP 97.7
[2019-09-17 23:35] VITALS: BP 129/63
--- NOTE | 2019-09-18 07:08 | EKG ---
Test Date: 2019-09-17 Test Time: 19:48:34 Felt Dyeing Machine Tender: LEONARD MEASUREMENT RESULTS: Intervals: Rate: 67 SD: 194 QRSD: 102 QT: 406 QTc: 429 [place]: P: 52 SD: 194 QRS: 67 T: -3 INTERPRETIVE STATEMENTS: Normal sinus rhythm Abnormal QRS-T angle, consider primary T wave abnormality Abnormal ECG Compared to ECG 07/04/2019 15:38:56 Possible ischemia no longer present T-wave abnormality still present Electronically Signed On 09-18-19 07:06:50 STATION SUPERVISOR by Oni Ugarte
== END 2019-09-17 22:32 | disposition home or self-care (01) ==
LOC: ER 19:30
DX: R06.02 Shortness of breath (principal); I10 Essential (primary) hypertension; E03.9 Hypothyroidism, unspecified; E11.9 Type 2 diabetes mellitus without complications; Z79.82 Long term (current) use of aspirin
CPT/HCPCS: 36415; 71045; 80048; 80076; 83735; 83880; 84439; 84443; 84484; 85025; 85610; 93005; 99283

== ENCOUNTER 2020-04-23 20:11 | Observation (INO) | payer OTHER ==
--- OUTSIDE RECORDS SUMMARY | 2020-04-23 20:14 | XMS REPORT | Continuity of Care Document ---
:1975 Author Organization [facility] t Address [facility] [place] [address] Care Team Providers Name Role Phone Unavailable Unavailable Unavailable Problems This patient has no known problems. Allergies, Adverse Reactions, Alerts This patient has no known allergies or adverse reactions. Medications This patient has no known medications. Procedures This patient has no known procedures. Results This patient has no known results.
[2020-04-24 00:06] LABS: Absolute Lymphocytes (CBC) 2.6 K/uL (0.7-4.9); Basophils % 0.9 % (0-1.3); Hematocrit 34.7 % (36.0-45.0); Lymphocytes % 23.2 % (15.3-44.8); MPV 9.8 fL (7.6-11.3); RBC Red Blood Cell Count 4.38 M/uL (3.86-4.86)
[2020-04-24 00:09] LABS: Protime INR 1.12
[2020-04-24 00:26] LABS: ALT/SGPT 23 U/L (12-78); AST/SGOT 13 U/L (15-37); Albumin 3.6 g/dL (3.4-5.0); Alkaline Phosphatase 95 U/L (45-117); BUN Blood Urea Nitrogen 24 mg/dL (7-18); Bicarbonate 27 mmol/L (21-32); Bilirubin Direct 0.1 mg/dL (0-0.2); Bilirubin Total 0.5 mg/dL (0.2-1.0); Glucose Level 127 mg/dL (74-106); Magnesium 2.3 mg/dL (1.8-2.4); NT PRO-BNP 41 pg/mL (<125); Potassium 3.6 mmol/L (3.5-5.1); Protein, Total 8.5 g/dL (6.4-8.2); Sodium Level 139 mmol/L (136-145); Troponin (Emerg Dept Use Only) < 0.02 ng/mL (0.0-0.045)
[2020-04-24] MEDS ORDERED: ACETAMINOPHEN 500 MG TAB PO PRN (01:02)
--- NOTE | 2020-04-24 01:13 | EDPHYS ---
Physician Documentation [facility] Name: Alisa Landry Age: 44 yrs Sex: Female : 1975 Arrival Date: 04/23/2020 Time: 20:12 Bed 19 Private MD: ED Physician Jose J Sorensno HPI: 04/23 23:54 This 44 yrs old Black Female presents to ER via Ambulatory with complaints of Chest mh7 Pain for 3 Days, SOB. 23:54 The patient or guardian reports chest pain that is located primarily in the anterior mh7 chest wall, left. Onset: 3 day(s) ago. The pain radiates to the left arm. Associated signs and symptoms: Pertinent positives: shortness of breath, Pertinent negatives: abdominal pain, cough, diaphoresis, dizziness, headache, lower extremity pain, lower extremity swelling, lightheadedness, nausea, near syncope, palpitations, recent travel, syncope, vomiting. The chest pain is described as aching, sharp. Duration: The patient or guardian reports multiple episodes, that are intermittent, that wax and wane, with no pattern. Modifying factors: The symptoms are alleviated by nothing. the symptoms are aggravated by exertion. Severity of pain: At its worst the pain was moderate today, in the emergency department the pain has improved moderately. The patient has been recently seen by a physician: earlier today. 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 - Social history:: Smoking status: Patient denies any tobacco usage or history of. Patient/guardian denies using alcohol, street drugs, tobacco products. ROS: 23:54 Constitutional: Negative for fever, chills, and weight loss, Eyes: Negative for injury, mh7 pain, redness, and discharge, ENT: Negative for injury, pain, and discharge, Neck: Negative for injury, pain, and swelling, Abdomen/GI: Negative for abdominal pain, nausea, vomiting, diarrhea, and constipation, Back: Negative for injury and pain, : Negative for injury, bleeding, discharge, and swelling, MS/Extremity: Negative for injury and deformity, Skin: Negative for injury, rash, and discoloration, Neuro: Negative for headache, weakness, numbness, tingling, and seizure, Psych: Negative for depression, anxiety, suicide ideation, homicidal ideation, and hallucinations, Allergy/Immunology: Negative for hives, rash, and allergies, Endocrine: Negative for neck swelling, polydipsia, polyuria, polyphagia, and marked weight changes, Hematologic/Lymphatic: Negative for swollen nodes, abnormal bleeding, and unusual bruising. Exam: 23:54 Constitutional: This is a well developed, well nourished patient who is awake, alert, mh7 and in no acute distress. Head/Face: Normocephalic, atraumatic. Eyes: Pupils equal round and reactive to light, extra-ocular motions intact. Lids and lashes normal. Conjunctiva and sclera are non-icteric and not injected. Cornea within normal limits. Periorbital areas with no swelling, redness, or edema. Neck: Trachea midline, no thyromegaly or masses palpated, and no cervical lymphadenopathy. Supple, full range of motion without nuchal rigidity, or vertebral point tenderness. No Meningismus. Chest/axilla: Normal chest wall appearance and motion. Nontender with no deformity. No lesions are appreciated. Cardiovascular: Regular rate and rhythm with a normal S1 and S2. No gallops, murmurs, or rubs. Normal PMI, no JVD. No pulse deficits. Respiratory: Lungs have equal breath sounds bilaterally, clear to auscultation and percussion. No rales, rhonchi or wheezes noted. No increased work of breathing, no retractions or nasal flaring. Abdomen/GI: Soft, non-tender, with normal bowel sounds. No distension or tympany. No guarding or rebound. No evidence of tenderness throughout. Back: No spinal tenderness. No costovertebral tenderness. Full range of motion. Skin: Warm, dry with normal turgor. Normal color with no rashes, no lesions, and no evidence of cellulitis. MS/ Extremity: Pulses equal, no cyanosis. Neurovascular intact. Full, normal range of motion. Neuro: Awake and alert, GCS 15, oriented to person, place, time, and situation. Cranial nerves II-XII grossly intact. Motor strength 5/5 in all extremities. Sensory grossly intact. Cerebellar exam normal. Normal gait. Psych: Awake, alert, with orientation to person, place and time. Behavior, mood, and affect are within normal limits. 04/24 01:53 ECG was reviewed by the Attending Physician. [facility] Vital Signs: 04/23 20:26 BP 142 / 92; Pulse 83; Resp 18; Temp 97.4; Pulse Ox 98% ; Pain 0/10; ll1 04/24 00:00 BP 149 / 91; Pulse 81; Resp 16; Pulse Ox 97% on R/A; Pain 0/10; mt2 01:00 BP 155 / 83; Pulse 81; Resp 16; Pulse Ox 97% on R/A; Pain 0/10; mt2 02:00 BP 148 / 92; Pulse 91; Resp 16; Pulse Ox 99% ; Pain 0/10; mt2 MDM: 04/23 23:14 Patient medically screened. [facility] 04/24 01:09 Differential diagnosis: abnormal EKG, acute myocardial infarction, acute pericarditis, [facility] coronary artery disease chest wall pain, congestive heart failure pneumonia, pneumothorax. HEART Score: History: Moderately Suspicious (1), ECG: Non specific repolarization disturbance / LBTB / PM (1), Age: > 45 and < 65 years (1), Risk Factors: > or = 3 Risk factors for atherosclerotic disease (2), [Hypertension] [DM] [Obesity] Troponin: < or = 1 x Normal Limit (0), Total Score = 5. Data reviewed: vital signs, nurses notes, lab test result(s), cardiac enzymes, CBC, electrolytes, urinalysis, EKG, radiologic studies. Data interpreted: Pulse oximetry: on room air is 98 %. Interpretation: normal. Counseling: I had a detailed discussion with the patient and/or guardian regarding: the historical points, exam findings, and any diagnostic results supporting the discharge/admit diagnosis, the presence of at least one elevated blood pressure reading (>120/80) during this emergency department visit, lab results, radiology results, the need for further work-up and treatment in the hospital. 04/23 23:14 Order name: Basic Metabolic Panel; Complete Time: 00:38 [facility] 04/23 23:14 Order name: CBC with Diff; Complete Time: 00:22 [facility] 04/23 23:14 Order name: LFT's; Complete Time: 00:38 [facility] 04/23 23:14 Order name: Magnesium; Complete Time: 00:38 [facility] 04/23 23:14 Order name: NT PRO-BNP; Complete Time: 00:38 [facility] 04/23 23:14 Order name: PT-INR; Complete Time: 00:38 [facility] 04/23 23:14 Order name: Troponin (emerg Dept Use Only); Complete Time: 00:38 [facility] 04/24 01:06 Order name: Basic Metabolic Panel [facility] 04/24 01:06 Order name: Basic Metabolic Panel [facility] 04/24 01:06 Order name: CBC with Automated Diff [facility] 04/24 01:06 Order name: CBC with Automated Diff [facility] 04/24 01:06 Order name: Lipid Profile [facility] 04/24 01:06 Order name: Lipid Profile [facility] 04/24 01:06 Order name: Troponin I [facility] 04/23 23:14 Order name: XRAY Chest (1 view) [facility] 04/23 23:14 Order name: EKG; Complete Time: 23:15 [facility] 04/23 23:14 Order name: Cardiac monitoring [facility] 04/23 23:14 Order name: EKG - Nurse/Tech; Complete Time: 01:03 [facility] 04/23 23:14 Order name: IV Saline Lock; Complete Time: 02:07 [facility] 04/23 23:14 Order name: Labs collected and sent; Complete Time: 01:03 [facility] 04/24 01:06 Order name: CONS Physician Consult [facility] 04/24 01:06 Order name: Heart Healthy [facility] 04/24 01:06 Order name: Troponin I [facility] 04/24 01:06 Order name: Troponin I [facility] 04/24 01:35 Order name: Urine Dipstick--Ancillary (enter results) [facility] 04/24 01:35 Order name: Urine --Ancillary (enter results) [facility] 04/24 01:38 Order name: Urine --Ancillary [facility] 04/24 01:38 Order name: Urine Dipstick-Ancillary [facility] 04/24 01:49 Order name: COVID-19 04/23 23:14 Order name: O2 Per Protocol; Complete Time: 01:03 [facility] 04/23 23:14 Order name: O2 Sat Monitoring; Complete Time: 01:03 [facility] 04/23 23:14 Order name: Urine Dipstick-Ancillary (obtain specimen); Complete Time: [facility] 04/23 23:14 Order name: Urine Test (obtain specimen); Complete Time: [facility] EC:53 Rate is 68 beats/min. Rhythm is regular, Normal Sinus Rhythm. CT interval is normal. 7 QRS interval is normal. QT interval is normal. No Q waves. T waves are Inverted in leads III, aVF. No ST changes noted. Clinical impression: Abnormal EKG without significant change. Administered Medications: :34 Drug: Aspirin Chewable Tablet 324 mg Route: PO; mt2 02:00 Follow up: Response: No adverse reaction; Marked relief of symptoms mt2 Disposition: 04/24/20 01:12 Hospitalization ordered by Sheba Goel for Observation. Preliminary diagnosis is Chest Pain. - Bed requested for Telemetry/MedSurg (observation). - Status is Observation. mt2 - Condition is Stable. - Problem is new. - Symptoms have improved. Signatures: Dispatcher [employer] EDMS Karyn Beach RN RN Connor Martinez RN RN 1 Jose J Sorenson MD MD [facility] Татьяна Ontiveros RN RN mt2 Corrections: (The following items were deleted from the chart) 02: 01:12 Hospitalization Ordered by Sheba Goel MD for Observation. Preliminary diagnosis is Chest Pain. Bed requested for Telemetry/MedSurg (observation). Status is Observation. Condition is Stable. Problem is new. Symptoms have improved. [facility] 04:01 02:22 04/24/2020 01:12 Hospitalization Ordered by Sheba Goel MD for Observation. mt2 Preliminary diagnosis is Chest Pain. Bed requested for Telemetry/MedSurg (observation). Status is Observation. Condition is Stable. Problem is new. Symptoms have improved. mw
--- NOTE | 2020-04-24 01:13 | ER ---
Nurse's Notes [facility] Name: Alisa Landry Age: 44 yrs Sex: Female : 1975 Arrival Date: 04/23/2020 Time: 20:12 Bed 19 Private MD: Diagnosis: Chest Pain Presentation: 04/23 20:26 Chief complaint: Patient states: Left sided sharp chest pain since Saturday ll1 intermittent. Slight SOB and fatigue noticed today. Pain to both sides of chest and both upper arms today. EKG normal at [facility] today, unable to get blood work. Coronavirus screen: Patient denies a cough. Patient reports shortness of breath or difficulty breathing. Patient denies measured and/or subjective temperature greater than 100.4F prior to today's visit. Patient denies travel on a cruise ship or to a country the [facility] currently lists as an affected area. Patient denies contact with known and/or suspected case of COVID-19. Proceed with normal triage. Ebola Screen: Patient denies travel to an Ebola-affected area in the 21 days before illness onset. Initial Sepsis Screen: Does the patient meet any 2 criteria? No. Patient's initial sepsis screen is negative. Risk Assessment: Do you want to hurt yourself or someone else? Patient reports no desire to harm self or others. Onset of symptoms. 20:26 Method Of Arrival: Ambulatory ll1 20:26 Acuity: ZEYAD 3 ll1 23:00 Initial Sepsis Screen: Does the patient have a suspected source of infection? No. mt2 Patient's initial sepsis screen is negative. 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 - Social history:: Smoking status: Patient denies any tobacco usage or history of. Patient/guardian denies using alcohol, street drugs, tobacco products. Screenin:55 Abuse screen: Denies threats or abuse. Nutritional screening: No deficits noted. mt2 Tuberculosis screening: No symptoms or risk factors identified. Fall Risk None identified. Assessment: 22:55 General: Appears in no apparent distress. Behavior is calm, cooperative. Pain: Denies mt2 pain. Neuro: No deficits noted. Cardiovascular: Reports chest pain, earlier today. Respiratory: Reports shortness of breath earlier in the day. GI: No deficits noted. : No deficits noted. EENT: No deficits noted. Derm: No deficits noted. Musculoskeletal: No deficits noted. 04/24 00:00 Reassessment: No changes from previously documented assessment. Patient and/or family mt2 updated on plan of care and expected duration. Pain level reassessed. Patient denies pain at this time. 01:00 Reassessment: No changes from previously documented assessment. Patient and/or family mt2 updated on plan of care and expected duration. Pain level reassessed. Patient denies pain at this time. 02:00 Reassessment: No changes from previously documented assessment. Patient and/or family mt2 updated on plan of care and expected duration. Pain level reassessed. Patient denies pain at this time. 03:15 Reassessment: No changes from previously documented assessment. Patient and/or family mt2 updated on plan of care and expected duration. Pain level reassessed. Patient denies pain at this time. Vital Signs: 04/23 20:26 BP 142 / 92; Pulse 83; Resp 18; Temp 97.4; Pulse Ox 98% ; Pain 0/10; ll1 04/24 00:00 BP 149 / 91; Pulse 81; Resp 16; Pulse Ox 97% on R/A; Pain 0/10; mt2 01:00 BP 155 / 83; Pulse 81; Resp 16; Pulse Ox 97% on R/A; Pain 0/10; mt2 02:00 BP 148 / 92; Pulse 91; Resp 16; Pulse Ox 99% ; Pain 0/10; mt2 ED Course: 04/23 20:12 Patient arrived in ED. do 20:29 Triage completed. ll1 20:31 Arm band placed on Patient notified of wait time. ll1 22:49 Татьяна Ontiveros, TONA is Primary Nurse. mt2 22:55 Bed in low position. Call light in reach. Side rails up X 1. sc2 23:03 Jose J Sorenson MD is Attending Physician. [facility] 23:58 XRAY Chest (1 view) In Process Unspecified. EDMS 04/24 01:12 Sheba Goel MD is Hospitalizing Provider. [facility] 02:08 Inserted saline lock: 18 gauge in right antecubital area, using aseptic technique. rv 02:33 Urine --Ancillary (enter results) Sent. mt2 02:33 Urine Dipstick--Ancillary (enter results) Sent. sc2 03:18 No provider procedures requiring assistance completed. Patient admitted, IV remains in sc2 place. 03:51 COVID-19 Sent. sc2 Administered Medications: 01:34 Drug: Aspirin Chewable Tablet 324 mg Route: PO; mt2 02:00 Follow up: Response: No adverse reaction; Marked relief of symptoms [facility] Outcome: 01:12 Decision to Hospitalize by Provider. [facility] 03:18 Admitted to Med/surg accompanied by tech, via wheelchair, room 430, Report called to [facility] sergion 03:20 Condition: stable [facility] 04:01 Patient left the ED. [facility] Signatures: Dispatcher [employer] EDMS Gabriela Oscar Ronaldo, RN RN rv Lewis, Lynsay, RN RN 1 Jose J Sorenson MD MD [facility] Татьяна Ontiveros RN RN sc2
[2020-04-24 01:38] LABS: Urine Blood NEGATIVE (NEG); Urine Glucose NEGATIVE (NEG); Urine Protein NEGATIVE (NEG); Urine Specific Gravity 1.025 (1.005-1.030)
[2020-04-24] MEDS ORDERED: NA CHLORIDE 0.9% 1,000 ML IV SCH (02:00)
[2020-04-24] MEDS: METOPROLOL TAR 50 MG TAB PO SCH ×2 (03:00→10:51)
--- NOTE | 2020-04-24 04:39 | P.HP ---
Certification for Inpatient Patient admitted to: Observation With expected LOS: <2 Midnights Patient will require the following post-hospital care: None Practitioner: I am a practitioner with admitting privileges, knowledge of patient current condition, hospital course, and medical plan of care. Services: Services provided to patient in accordance with Admission requirements found in Title 42 Section 412.3 of the Code of Federal Regulations Patient History Date of Service: 04/24/20 Reason for admission: Chest pain rule out acute coronary syndrome History of Present Illness: Patient is a 44-year-old female who came to the hospital with chest pain. Pain was in the anterior chest wall and radiates to the left side. She was short of breath as well. Patient came into the ER for further evaluation. In the ER patient had EKG and troponins which were negative. Patient be admitted to the hospital for further evaluation. Patient also has very mild leukocytosis. Along with her shortness of breath. Will admit her to the hospital and emergency room is also doing COVID-19 testing. Patient be admitted for further observation. Will get Cardiology consultation. She will probably need outpatient cardiology workup. Allergies No Known Allergies Allergy (Unverified 04/24/20 01:29) - Past Medical/Surgical History Past Medical History: Patient denies medical history Past Surgical History: Patient denies surgical history - Family History Father Family History: Reviewed- Non-Contributory - Social History Smoking Status: Former smoker Alcohol use: No CD- Drugs: No Review of Systems 10-point ROS is otherwise unremarkable Physical Examination - Vital Signs Temperature: 99.6 F Blood Pressure: 148/92 Pulse: 91 Respirations: 16 Pulse Ox (%): 95 - Physical Exam General: Alert, In no apparent distress, Oriented x3 HEENT: Atraumatic, PERRLA, Mucous membr. moist/pink, EOMI, Sclerae nonicteric Neck: Supple, 2+ carotid pulse no bruit, No LAD, Without JVD or thyroid abnormality Respiratory: Clear to auscultation bilaterally, Normal air movement Cardiovascular: Regular rate/rhythm, Normal S1 S2, No murmurs Gastrointestinal: Normal bowel sounds, Soft and benign, Non-distended, No tenderness, No rebound, No guarding Musculoskeletal: No clubbing, No swelling, No tenderness Integumentary: No rashes Neurological: Normal gait, Normal speech, Normal strength at 5/5 x4 extr, Normal tone, Sensation intact, Cranial nerves 3-12 intact, Normal affect Lymphatics: No axilla or inguinal lymphadenopathy - Studies Laboratory Data (last 24 hrs) 04/23/20 23:58: PT 13.2 H, INR 1.12 04/23/20 23:58: WBC 11.0 H, Hgb 10.8 L, Hct 34.7 L, Plt Count 257 04/23/20 23:58: Sodium 139, Potassium 3.6, BUN 24 H, Creatinine 1.33 H, Glucose 127 H, Magnesium 2.3, Total Bilirubin 0.5, AST 13 L, ALT 23, Alkaline Phosphatase 95 Assessment & Plan - Problems (Diagnosis) (1) Chest pain, rule out acute myocardial infarction Current Visit: Yes Status: Acute - Plan 1. Serial troponins and EKG 2. Appreciate Cardiology consultation 3. Echocardiogram and stress test if cardiology is agreeable as an outpatient 4. Anti-platelet therapy, anti coagulation, beta-david, statin, and O2 as needed 5. IV morphine for pain 6. Nitro p.r.n. 7. COVID-19 testing - Advance Directives Does patient have a Living Will: No Does patient have a Durable POA for Healthcare: No
[2020-04-24 04:41] VITALS: O2SAT 94
[2020-04-24 06:56] VITALS: BMI 59.2
[2020-04-24 07:57] LABS: HDL Cholesterol 42 mg/dL (40-60); LDL Cholesterol, Calculated 96 (<130); Troponin I < 0.02 ng/mL (0.0-0.045)
[2020-04-24] MEDS ORDERED: ASPIRIN EC 81 MG TAB PO SCH (09:00)
[2020-04-24] MEDS: ENOXAPARIN 40 MG/0.4 ML SQ SCH ×2 (09:00→10:51)
[2020-04-24 12:28] VITALS: BP 150/88; TEMP 98.5
--- NOTE | 2020-04-24 12:29 | RAD REPORT ---
EXAM DESCRIPTION: RAD - Chest Single View - 04/23/2020 11:58 pm CLINICAL HISTORY: CHEST PAIN Chest pain. COMPARISON: Chest Single View dated 09/17/2019; Chest Single View dated 07/04/2019; Chest Single View dated 05/20/2019 FINDINGS: Portable technique limits examination quality. The lungs are grossly clear. The heart is normal in size. No displaced fractures. IMPRESSION: No acute intrathoracic process suspected.
== END 2020-04-24 14:07 | disposition home or self-care (01) ==
LOC: ER 20:11 → ERHOLD 04-24 01:02 → 4TH 04-24 03:08
PROVIDERS: ADMIT Hospitalist; ATTEND Hospitalist
DX: R07.9 Chest pain, unspecified (principal); R06.02 Shortness of breath; D72.829 Elevated white blood cell count, unspecified; E11.9 Type 2 diabetes mellitus without complications; I10 Essential (primary) hypertension; E03.9 Hypothyroidism, unspecified; Z87.891 Personal history of nicotine dependence; Z20.828 Contact with and (suspected) exposure to other viral communicable diseases
CPT/HCPCS: 93005; 85025; 80048; 36415; 83735; 81025; 85610; 80061; 82947 ×2; 80076; 81003; 84484 ×3; 83880; 71045; 99285; U0002; G0378 ×2; J1650

== ENCOUNTER 2022-02-17 11:24 | Emergency (ER) | payer BC, OTHER ==
--- OUTSIDE RECORDS SUMMARY | 2022-02-17 11:26 | XMS REPORT | Continuity of Care Document ---
:1975 Author Organization [facility] t Address [address] [place] [address] Care Team Providers Name Role Phone Steve AGRAWAL Primary Care Physician ROXI Attending Clinician Unavailable NICK DIANE Attending Clinician Unavailable Claudia SANDERS Attending Clinician Unavailable Sapna CARBONE Attending Clinician Unavailable JACOBO CHAIDEZ Attending Clinician Unavailable Johnnie SANDERS Attending Clinician Unavailable Jorge A SANTOS Attending Clinician Unavailable Georges CHOPRA Attending Clinician SUNSHINE Attending Clinician Unavailable NICK DIANE Admitting Clinician Unavailable Payers Payer Name Policy Type Policy Number Effective Date Expiration Date [facility] [id number] 2021 00:00:00 [employer] OPEN [id number] 2019 2021 00:00:00 ACCESS/OPEN 00:00:00 ACCESS PLUS Problems This patient has no known problems. Allergies, Adverse Reactions, Alerts This patient has no known allergies or adverse reactions. Social History Social Habit Start Date Stop Date Quantity Comments [facility] Std Drinks History [facility] Alcohol Binge Exposure to Not sure [facility] SARS-CoV-2 (event) History [facility] Health Alcohol Comment Alcohol intake 2022-01-31 2022-01-31 Lifetime [facility] 00:00:00 00:00:00 non-drinker (finding) Tobacco use and 2021-02-22 2021-02-22 Smokeless tobacco [facility] exposure 00:00:00 00:00:00 non-user History SDOH 2021-02-22 2021-02-22 1 [facility] Alcohol Frequency 00:00:00 00:00:00 Sex Ass[birth year] At [birth year] [facility] 00:00:00 00:00:00 Smoking Status Start Date Stop Date Source Never smoked tobacco [facility] Unknown if ever smoked [facility] Medications Ordered Filled Start Stop Current Ordering Indication Dosage Frequency Signature Comments Components Source Medication Medication Date Date Medication? Clinician (SIG) Name Name amoxicillin 2021- Yes [id number] Q.5D Take by AR -clarithrom 11-2708 mouth 2 [facility] 00:00: 05:59 (two) razole 00 :00 times a (Prevpac) day for 14 combo pack days. Follow directions for each daily card for when to take. amoxicillin 2021- Yes [id number] Q.5D Take by AR -clarithrom 11-27 mouth 2 [facility] 00:00: 05:59 (two) razole 00 :00 times a (Prevpac) day for 14 combo pack days. Follow directions for each daily card for when to take. Vital Signs Vital Name Observation Time Observation Value Comments Source Systolic blood pressure 2022-01-31 14:01:00 138 mm[Hg] [facility] Diastolic blood pressure 2022-01-31 14:01:00 81 mm[Hg] [facility] Heart rate 2022-01-31 14:01:00 71 /[facility] temperature 2022-01-31 14:01:00 36.5 [facility] height 2022-01-31 14:01:00 151.1 [facility] Body weight 2022-01-31 14:01:00 156.264 [facility] BMI 2022-01-31 14:01:00 68.42 kg/m2 [facility] Body height 2021-05-12 15:48:00 [facility].1 [facility] Body weight 2021-05-12 15:48:00 153[facility]769 [facility] BMI 2021-05-12 15:48:00 67.32 kg/m2 [facility] Body height 2021-04-14 13:52:00 [facility]1 [facility] 2021-04-14 13:52:00 [facility]534 [facility] BMI 2021-04-14 13:52:00 68.97 kg/m2 [facility] Systolic blood pressure 2021-02-22 13:50:00 127 mm[Hg] [facility] Diastolic blood pressure 2021-02-22 13:50:00 75 mm[Hg] [facility] Heart rate 2021-02-22 13:50:00 60 /min [facility] Body temperature 2021-02-22 13:50:00 36.22 Annabella [facility] ealth Body height 2021-02-22 13:50:00 151.1 cm [facility] Body weight 2021-02-22 13:50:00 155.754 kg [facility] BMI 2021-02-22 13:50:00 68.19 kg/m2 [facility] Procedures Procedure Date / Time Performed Performing Clinician Sourc e VITAMIN B12 2021-02-20 12:32:00 [facility] FOLATE 2021-02-20 12:32:00 [facility] PTH, INTACT 2021-02-20 12:32:00 [facility] VITAMIN E 2021-02-20 12:32:00 [facility] VITAMIN A 2021-02-20 12:32:00 [facility] VITAMIN B1, WHOLE BLOOD 2021-02-20 12:32:00 [facility] IRON AND TIBC 2021-02-20 12:32:00 [facility] QUESTASSURED 25-OH VIT D, 2021-02-20 12:32:00 [facility] (D2,D3) Encounters Start End Encounter Admission Attending Care Care Encounter Source Date/Time Date/Time Type Type Clinicians Facility Department ID 2022-02-07 Outpatient ROXI [facility] [id number] [place] 17:39:36 CANDIDO [id number] [facility] 2022-01-31 Outpatient ROXI [facility] [id number] [place] 08:40:48 CANDIDO [id number] [facility] 2022-01-29 Outpatient ROXI, [facility] [id number] [place] 10:56:11 CANDIDO [id number] [facility] 2022-01-24 Outpatient ROXI, [facility] [id number] [place] 10:45:53 CANDIDO [id number] [facility] 2022-01-16 Outpatient ROXI, [facility] [id number] [place] 14:16:40 CANDIDO [id number] [facility] 2022-01-15 Outpatient [facility] [id number] [place] 12:17:[id number] [place] [address] 2021-02-22 Outpatient ROXI, [facility] [id number] [place] 09:14:05 [facility] 2022-02-13 2022-02-14 Outpatient ROXI, [facility] [id number] MH 13:06:00 10:17:00 [facility] 2022-02-01 2022-02-01 Outpatient ROXI, [facility] [id number] MH 11:06:00 11:06:00 [facility] 2022-01-31 2022-01-31 Office FINA Diane [facility] [id number] [place] 09:00:00 09:39:02 Visit Candido [facility] [id number] He alth [address] 2 9.2.7.2.686 [id number] 2021-12-08 2021-12-08 Telephone Jessica Taylor [facility] 1.2.840 .114 [id number] [place] 00:00:00 00:00:00 Jessica Taylor [facility] [id number] Health [address] 2 [id number] [id number] 2021 2021 Telephone Argelia Alejo [facility] 1.2.840 .114 [id number] [place] 00:00:00 00:00:00 rAgelia Alejo 350.1.13.58 Health MEDICAL 9.2.7.2.686 BUILDING [id number] 2021-11-20 2021-11-20 Outpatient PATANITA [facility] [id number] MH 10:25:00 13:20:00 MARYSOL [facility] 2021-05-16 2021-05-16 Telephone Tiffany Blair [facility] 1.2.84 0.114 [id number] [place] 00:00:00 00:00:00 Tiffany Blair [facility] [id number] Health [place] 2 [id number] [id number] 2021-05-12 2021-05-12 Nutrition FINA Jules [facility] 1.2.840.114 [id number] [place] 10:20:20 10:37:29 [place] SE MED [id number] He alth [address] 2 9.2.7.2.686 [id number] 2021-05-01 2021-05-01 EXT [facility] OP EXT [facility] 1.2.840.114 1 [id number] [place] 00:00:00 00:00:00 LOCATION 350.1.13.58 H ealth 9.2.7.2.686 [id number] 2021-04-14 2021-04-14 Nutrition FINA Jules [facility] 1.2.840.114 [id number] [place] 08:22:32 09:21:38 [place] SE MED [id number] He alth [address] 2 9.2.7.2.686 [id number] 2021-03-01 2021-03-01 Telephone Tiffany Blair [facility] 1.2.84 0.114 [id number] [place] 00:00:00 00:00:00 Tiffany Blair [facility] [id number] Health [place] 2 9.2.7.2.686 [id number] 2021-02-22 2021-02-22 Office FINA Diane [facility] 1.2.840.114 [id number] UT 08:41:59 09:11:03 Visit Candido SE MED [id number] He alth [place] 2 9.2.7.2.686 [id number] 2021-02-20 2021-02-20 FINA Guevara RACHELLE 1.2.327.153 [id number] [place] 00:00:00 00:00:00 Only Katherine DUENAS 350.1.13.58 Sin [facility]ER 9.2.7.2.686 SPECIALTY [id number] CLINIC 8 2020-11-17 2020-11-17 Outpatient [facility] [id number] [place] 00:00:00 00:00:00 IRMA [address] 2020-10-20 2020-10-20 Outpatient [facility] [id number] [place] 00:00:00 00:00:00 IRMA [address] Results Test Description Test Time Test Comments Results Result Comments Source Folate 2021-02-21 01:00:00 Test Item Value Reference Range Interpretation Comme nts FOLATE, SERUM (test code 21.3 ng/mL ? = 2284-8) Reference Range ? L ow: ? <3.4 ? Borderline: ? ?3.4-5.4 ? Normal: ? >5.4 RAC (test code = RAC) Performing Organization Information: ? ?Site ID: [id number] ? ?Name: [employer] [place] ? ?Address: [address] [place] [id number] ? ?Director: IRMA WILSON MD [facility] Health[facility] [id number] 01:00:00 Test Item Value Reference Range Interpretation Comments VITAMIN B12 (test 1026 pg/mL 200-1100 code = 2132-9) RAC (test code = Performing Organization RAC) Information: ? ?Site ID: RGA ? ?Name: [employer] [place] ? ?Address: [address] [place] [phone] ? ?Director: IRMA WILSON MD [facility] HealthSARS-COV2/RT-PCR ([facility])2020-04-24 14:29:00 Test Item Value Reference Range Interpretation Comments SARS-COV2/RT-PCR (test code = Negative Not Detected, Negative [id number]) SARS-COV-2 PERFORMING LAB [facility] (test code = 5659299) Negative result for this test determines that SARS-CoV-2 RNA was not present in the specimen above the Limit of Detection (LOD). However, Negative results do not preclude SARS-CoV-2 infection and should not be used as the sole basis for treatment or patient management decisions. Negative results mustbe combined with clinical observations, patient history, and epidemiological information. A false negative result may occur if a specimen is improperly collected, transported or handled. A false negative result should be considered if patient's recent exposures or clinical presentation indicate that COVID-19 (SARS-CoV-2) is likely and diagnostic tests for other causes of illness are negative. Re-testing should be considered in cases of suspected false negatives.The limit of detection for this assay is 800 copies/mL.This SARS CoV-2 test is a real-time RT-PCR test intended for the qualitative detection of nucleic acid from SARS-CoV-2 in a nasopharyngeal swab specimen collected from individuals suspected of COVID-19 by their healthcare provider.This test has not been Food and Drug Administration (FDA) cleared or approved. This is a modified version of an approved Emergency Use Authorization (EUA) and is in the process of review by the FDA. Once authorized by the FDA, the issued EUA will be effective until the declaration that circumstances exist justifying the authorization of the emergency use of in vitro diagnostic tests for detection and/or diagnosis of COVID-19 is terminated under Section 564(b)(2) of the Act or the EUA is revoked under Section 564(g) of the Act.Fact Sheet for Healthcare Providers:https://www.[employer].com/sites/default/files/product/documents/Fact_Shee r_LQ_Kglngjdew_Dytc_VGWC-MjR-1.pdfFact Sheet for Healthcare Patients:https://www.[employer].com/sites/default/files/product/ documents/Regz_Meqlr_Fskzysaa_Meun_HIVU-WdC-9.pdfPerforming Laboratory:[facility] [place] [address]
[2022-02-17] MEDS ORDERED: NA CHLORIDE 0.9% 1,000 ML ONE (12:29)
[2022-02-17] MEDS ORDERED: ONDANSETRON 4 MG/2 ML VIAL ONE ×2 (12:29→15:32)
[2022-02-17 12:45] LABS: Absolute Lymphocytes (CBC) 0.7 K/uL (0.7-4.9); MPV 9.5 fL (7.6-11.3); RBC Red Blood Cell Count 4.39 M/uL (3.86-4.86)
[2022-02-17 12:46] LABS: Albumin 3.5 g/dL (3.4-5.0); Potassium 3.6 mmol/L (3.5-5.1); Protein, Total 7.9 g/dL (6.4-8.2)
--- NOTE | 2022-02-17 14:08 | RAD REPORT ---
EXAM DESCRIPTION: CTAbdomen Pelvis W Contrast - 02/17/2022 1:48 pm CLINICAL HISTORY: Abdominal pain, post-op COMPARISON: No comparisons TECHNIQUE: CT of the abdomen and pelvis was performed. All CT scans are performed using dose optimization technique as appropriate and may include automated exposure control or mA/KV adjustment according to patient size. FINDINGS: Lower chest: No acute abnormality. Liver: No acute abnormality or suspicious lesions. Biliary: No biliary ductal dilatation. Stomach: Louis-en-Y gastric bypass. The bypassed stomach is distended with fluid. Duodenum: No significant focal abnormality. Pancreas: No significant abnormality. Spleen: No significant abnormality. Adrenal: No suspicious lesions. Kidney/ureter: No hydronephrosis. No renal calculi. Retroperitoneum: No retroperitoneal adenopathy. Vascular: No aneurysm. Bowel: Moderate stool in the rectum. Fecalized bowel contents at the efferent limb. Peritoneum: Fat containing periumbilical hernia. Recent postoperative changes with gas within the abd ominal wall. Bladder: Grossly unremarkable. Reproductive: No adnexal masses. Bones: No acute fracture. Other: n/a IMPRESSION: Surgical changes from recent Louis-en-Y gastric bypass. No leak identified. No bowel obst ruction though the efferent limb bowel contents are fecalized which could indicate slow transit.
--- NOTE | 2022-02-17 14:36 | ER ---
Nurse's Notes [facility] Name: Alisa Landry Age: 46 yrs Sex: Female : 1975 Arrival Date: 02/17/2022 Time: 11:26 Bed 13 Private MD: Edmund Wilson Diagnosis: Constipation Presentation: 02/17 11:38 Chief complaint: Patient states: had gastric bypass onTday , now I'm very nauseous iw and having pains in abdomen , no BM since Saturday , has been taking miralax. Coronavirus screen: At this time, the client does not indicate any symptoms associated with coronavirus-19. Ebola Screen: Patient negative for fever greater than or equal to 101.5 degrees Fahrenheit, and additional compatible Ebola Virus Disease symptoms Patient denies exposure to infectious person. Patient denies travel to an Ebola-affected area in the 21 days before illness onset. No symptoms or risks identified at this time. Initial Sepsis Screen: Does the patient meet any 2 criteria? No. Patient's initial sepsis screen is negative. Does the patient have a suspected source of infection? No. Patient's initial sepsis screen is negative. Risk Assessment: Do you want to hurt yourself or someone else? Patient reports no desire to harm self or others. Onset of symptoms was February 17, 2022. 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 - Social history:: Smoking status: unknown. Screenin:30 Abuse screen: Denies threats or abuse. Nutritional screening: No deficits noted. jd3 Tuberculosis screening: No symptoms or risk factors identified. Fall Risk Ambulatory Aid- None/Bed Rest/Nurse Assist (0 pts). Gait- Normal/Bed Rest/Wheelchair (0 pts) Mental Status- Oriented to own ability (0 pts). Total Jackson Fall Scale indicates No Risk (0-24 pts). Assessment: 12:28 General: Appears in no apparent distress. uncomfortable, Behavior is calm, cooperative, jd3 appropriate for age. Pain: Complains of pain in abdomen Quality of pain is described as aching, squeezing. Neuro: Saba Agitation-Sedation Scale (RASS): 0 - Alert and Calm Level of Consciousness is awake, alert, obeys commands, Oriented to person, place, time, situation. Cardiovascular: Denies chest pain, Capillary refill < 3 seconds Patient's skin is warm and dry. Respiratory: Airway is patent Respiratory effort is even, unlabored, Respiratory pattern is regular, symmetrical, Denies cough, shortness of breath. GI: Abdomen is round obese, Abd is soft X 4 quads Abdomen is tender to palpation X 4 quads. Reports lower abdominal pain, upper abdominal pain, constipation, nausea. : No signs and/or symptoms were reported regarding the genitourinary system. EENT: No signs and/or symptoms were reported regarding the EENT system. Derm: Skin is intact, Skin is dry, Skin is normal, Skin temperature is warm. Musculoskeletal: Circulation, motion, and sensation intact. Range of motion: intact in all extremities. 14:25 Reassessment: Patient appears in no apparent distress at this time. Patient and/or jd3 family updated on plan of care and expected duration. Pain level reassessed. Patient is alert, oriented x 3, equal unlabored respirations, skin warm/dry/pink. 15:36 Reassessment: Patient appears in no apparent distress at this time. Patient and/or jd3 family updated on plan of care and expected duration. Pain level reassessed. Patient is alert, oriented x 3, equal unlabored respirations, skin warm/dry/pink. Vital Signs: 11:38 BP 142 / 69; Pulse 64; Resp 16; Temp 97.5; Pulse Ox 100% on R/A; iw 13:25 BP 145 / 82; Pulse 69; Resp 16 S; Pulse Ox 100% on R/A; jd3 14:25 BP 131 / 79; Pulse 68; Resp 16 S; Pulse Ox 100% on R/A; jd3 ED Course: 11:26 Patient arrived in ED. as 11:26 Edmund Wilson is Private Physician. as 11:39 Triage completed. iw 11:40 Arm band placed on. iw 11:41 Meaghan Alcantar, TONA is Primary Nurse. iw 11:47 Ofelia Luciano PA is PHCP. en 11:47 Sheba Magallanes MD is Attending Physician. en 11:48 Faraz Moody RN is Primary Nurse. jd3 12:28 Inserted saline lock: 22 gauge in right antecubital area, using aseptic technique. jd3 Blood collected. 12:30 Patient has correct armband on for positive identification. Bed in low position. Call jd3 light in reach. Side rails up X2. Adult w/ patient. Pulse ox on. NIBP on. 13:50 CT Abd/Pelvis - PO and IV Contrast In Process Unspecified. EDMS 14:35 Edmund Wilson is Referral Physician. en 15:36 No provider procedures requiring assistance completed. IV discontinued, intact, jd3 bleeding controlled, No redness/swelling at site. Pressure dressing applied. Administered Medications: 12:28 Drug: Zofran (Ondansetron) 4 mg Route: IVP; Site: right antecubital; jd3 14:17 Follow up: Response: No adverse reaction jd3 12:28 Drug: NS 0.9% 1000 ml Route: IV; Rate: 1 bolus; Site: right antecubital; jd3 14:17 Follow up: Response: No adverse reaction; IV Status: Completed infusion jd3 15:01 Drug: Phenergan (promethazine) 12.5 mg Route: IM; Site: right deltoid; jd3 15:36 Follow up: Response: No adverse reaction jd3 15:29 Drug: Zofran (Ondansetron) 4 mg Route: IVP; Site: right antecubital; jd3 15:36 Follow up: Response: No adverse reaction; Medication administered at discharge. jd3 Medication: 12:30 VIS not applicable for this client. jd3 Outcome: 14:35 Discharge ordered by . en 15:37 Discharged to home ambulatory, with family. jd3 15:37 Condition: stable 15:37 Discharge instructions given to patient, family, Instructed on discharge instructions, follow up and referral plans. medication usage, Demonstrated understanding of instructions, follow-up care, medications, Prescriptions given X 1. 15:37 Patient left the ED. jd3 Signatures: Dispatcher [employer] Sugar Fang Irene, RN RN iw Faraz Moody RN RN jOfelia Domínguez PA PA en Corrections: (The following items were deleted from the chart) 11:40 11:38 Pulse Ox 100% RA; Temp 97.5F; iw iw
--- NOTE | 2022-02-17 14:36 | EDPHYS ---
Physician Documentation [facility] Name: Alisa Landry Age: 46 yrs Sex: Female : 1975 Arrival Date: 02/17/2022 Time: 11:26 Bed 13 Private MD: Edmund Wilson ED Physician Sheba Magallanes HPI: 02/17 14:27 This 46 yrs old Black Female presents to ER via Ambulatory with complaints of Abdominal en Pain - gastric bypass 02/13, Nausea, Constipation. 14:27 The patient presents with abdominal pain constipation. Onset: The symptoms/episode en began/occurred gradually, 5 day(s) ago. The symptoms do not radiate. Associated signs and symptoms: Pertinent positives: constipation, nausea, Pertinent negatives: fever, vomiting. The symptoms are described as crampy. Modifying factors: The symptoms are alleviated by nothing, the symptoms are aggravated by food. Severity of pain: At its worst the pain was moderate. 46 yo F with HTN and DM presents to ED 5d s/p gastric bypass with nausea, oral aversion, and constipation. She is passing gas and feels a stool burden but unable to pass stool. Spoke with surgeon who instructed her to take miralax. no relief. Denied F/C. no vomiting. Has abdominal cramping and is passing gas. No dysuria, hematuria. [employer]: 14:00 LMP N/A - Irregular menses jd3 Historical: - Allergies: 11:39 No Known Allergies; iw - PMHx: 11:39 Diabetes - IDDM; Hypertension; Hypothyroidism; iw - PSHx: 11:39 gastric bypass; hysterectomy; iw - Immunization history:: Adult Immunizations up to date. - Social history:: Smoking status: unknown. ROS: 14:27 Constitutional: Negative for fever, chills, and weight loss. en 14:27 Cardiovascular: Negative for chest pain, edema, orthopnea. 14:27 Respiratory: Negative for cough, shortness of breath. 14:27 Abdomen/GI: Positive for nausea, constipation, abdominal cramps, Negative for vomiting, diarrhea, hematemesis, black/tarry stool, rectal bleeding. 14:27 All other systems are negative. Exam: 14:27 Constitutional: This is a well developed, well nourished patient who is awake, alert, en and in no acute distress. 14:27 Constitutional: The patient appears obese. 14:27 Eyes: Pupils: equal, round, and reactive to light and accomodation. 14:27 ENT: External ear(s): 14:27 Cardiovascular: Rate: normal, Rhythm: regular, Pulses: no pulse deficits are appreciated, Heart sounds: normal. 14:27 Respiratory: the patient does not display signs of respiratory distress, Respirations: normal, Breath sounds: are clear throughout. 14:27 Abdomen/GI: Inspection: abdomen appears normal, scar(s), incisions with dermabond in place. no erythema, induration, fluctuance, or drainage, Bowel sounds: diminished, in all quadrants, Palpation: soft, mild abdominal tenderness, in all quadrants, appropriate post op discomfort without rebound, guarding, or peritoneal sxs, Rectal exam: Exam limited due to body habitus, Unable to appreciate stool in rectal vault no bleeding. 14:27 Musculoskeletal/extremity: Extremities: all appear grossly normal, with no appreciated pain with palpation. 14:27 Skin: Vital Signs: 11:38 BP 142 / 69; Pulse 64; Resp 16; Temp 97.5; Pulse Ox 100% on R/A; iw 13:25 BP 145 / 82; Pulse 69; Resp 16 S; Pulse Ox 100% on R/A; jd3 14:25 BP 131 / 79; Pulse 68; Resp 16 S; Pulse Ox 100% on R/A; jd3 MDM: 11:47 Patient medically screened. en 14:27 Differential diagnosis: AAA, appendicitis, bowel obstruction, cholecystitis, en Cholelithiasis, diverticulitis, gastritis, gastroesophageal reflux disease, GI Bleed, Peptic Ulcer Disease, Perf. Duodenal Ulcer, Perf. Gastric Ulcer, Peritonitis, constipation. Data reviewed: vital signs, nurses notes, old medical records, lab test result(s), radiologic studies, and as a result, I will discharge patient. ED course: Spoke with pt. reviewed imaging and labs. She is tolerating po with intermittent nausea. Discussed option for mineral oil enema, Will d/c home with Rx. Will also give zofran ODT and mag citrate. ER return warnings reviewed.. 14:53 ED course: Pt requesting for more nausea meds before d/c. Will give a dose of en Phenergan.. 02/17 12:06 Order name: CBC with Diff en 02/17 12:06 Order name: CMP; Complete Time: 14:18 en 02/17 12:06 Order name: Test, Serum; Complete Time: 14:18 en 02/17 12:06 Order name: CT Abd/Pelvis - PO and IV Contrast; Complete Time: 14:18 en 02/17 15:08 Order name: CBC Smear Scan EDMS Administered Medications: 12:28 Drug: Zofran (Ondansetron) 4 mg Route: IVP; Site: right antecubital; jd3 14:17 Follow up: Response: No adverse reaction jd3 12:28 Drug: NS 0.9% 1000 ml Route: IV; Rate: 1 bolus; Site: right antecubital; jd3 14:17 Follow up: Response: No adverse reaction; IV Status: Completed infusion jd3 15:01 Drug: Phenergan (promethazine) 12.5 mg Route: IM; Site: right deltoid; jd3 15:36 Follow up: Response: No adverse reaction jd3 15:29 Drug: Zofran (Ondansetron) 4 mg Route: IVP; Site: right antecubital; jd3 15:36 Follow up: Response: No adverse reaction; Medication administered at discharge. jd3 Disposition: 18:04 Co-signature as Attending Physician, Sheba Magallanes MD. ma2 Disposition Summary: 02/17/22 14:35 Discharge Ordered Location: Home en Condition: Stable en Diagnosis - Constipation en Followup: en - With: Edmund Wilson - When: As needed - Reason: Discharge Instructions: - Discharge Summary Sheet en - Constipation, Adult, [id number] en Forms: - Medication Reconciliation Form en - Thank You Letter en - Antibiotic Education en - Prescription Opioid Use en Prescriptions: - ondansetron 8 mg Oral tablet,disintegrating - take 1 tablet by ORAL route every 12 hours; 20 tablet; Refills: 0, Product en Selection Permitted Signatures: Dispatcher [employer] Meaghan Damon RN RN iw Davies, Jonathon, RN RN jd3 Alzahri, Mohammad, MD MD ma2 Ofelia Luciano PA PA en
[2022-02-17] MEDS ORDERED: PROMETHAZINE INJ 25 MG/ML AMP ONE (15:01)
[2022-02-17 15:10] LABS: Blood Morphology Comment NOT SEEN (NOT SEEN); Platelet Estimate ADEQ; White Blood Cell Scan OK (OK)
[2022-02-17 19:59] VITALS: TEMP 97.5; O2SAT 100
[2022-02-17 20:03] VITALS: BP 131/79
== END 2022-02-17 15:37 | disposition home or self-care (01) ==
LOC: ER 11:24
DX: K59.00 Constipation, unspecified (principal); Z98.84 Bariatric surgery status; E11.9 Type 2 diabetes mellitus without complications; I10 Essential (primary) hypertension
CPT/HCPCS: 96361; 85025; 36415; 84703; 80053; 74177; 96372; 96374; 99284; Q9967; J2550; J7030; J2405 ×2